=== PATIENT | female | born 1955 | race Caucasian/White ===

== ENCOUNTER 2024-04-20 11:53 | Emergency (ER) | payer OTHER ==
[2024-04-20 12:40] LABS: #Basophils Less than 0.03 10x3/uL (0.0-0.2); %Basophils 0.2 % (0.0-1.0); %Eosinophils 1.1 % (0.0-10.0); %Lymphocytes 15.5 % (21.0-51.0); %Monocytes 6.3 % (0.0-10.0); %Neutrophils 76.6 % (42.0-75.0); Hematocrit 42.4 % (36.0-47.0); Hemoglobin 14.6 g/dL (12.0-16.0); Mean Corpuscular HGB CONC 34.4 g/dL (32.0-36.0); Mean Corpuscular Hemoglobin 31.9 pg (27.0-31.0); Mean Corpuscular Volume 92.8 fL (78.0-98.0); Mean Platelet Volume 10.4 fL (7.4-10.4); Platelet Count 216 10x3/uL (130-400); RBC Distribution Width 15.4 % (11.5-14.5); Red Blood Cell (RBC) Count 4.57 mill/uL (4.20-5.40)
[2024-04-20 13:00] LABS: ALT (SGPT) 32 U/L (8-55); AST (SGOT) 56 U/L (5-34); Albumin 3.1 g/dL (3.4-4.8); Alkaline Phosphatase 148 U/L (40-110); Anion Gap 22 mmol/L (10-20); BUN (Urea Nitrogen) 19 mg/dL (9.8-20.1); Bilirubin, Total 2.3 mg/dL (0.2-1.2); Calc. Creatinine Clearance 0 mL/min (70-130); Calcium 9.2 mg/dL (7.8-10.44); Carbon Dioxide 32 mmol/L (23-31); Chloride 86 mmol/L (98-107); Estimated GFR 27; Globulin 4.6 g/dL (2.4-3.5); Glucose 91 mg/dL (80-115); Protein, Total 7.7 g/dL (5.8-8.1); Sodium 136 mmol/L (136-145)
[2024-04-20 13:12] LABS: Troponin I Less than 0.010 ng/mL (< 0.028)
== END 2024-04-20 17:48 | disposition home or self-care (01) ==
LOC: ERS 11:53
DX: E86.0 Dehydration (principal); R94.5 Abnormal results of liver function studies; N17.9 Acute kidney failure, unspecified; R55 Syncope and collapse; I10 Essential (primary) hypertension; I48.91 Unspecified atrial fibrillation; Z87.891 Personal history of nicotine dependence; Z79.01 Long term (current) use of anticoagulants; Z79.82 Long term (current) use of aspirin
CPT/HCPCS: 80053; 83880; 84484; 85025; 93005; 96360; 96361

== ENCOUNTER 2024-04-24 03:16 | Inpatient (IN) | payer OTHER, MEDICAID ==
[2024-04-24] MEDS ORDERED: Ondansetron PF 4 MG/2 ML Vial ONE (04:29)
[2024-04-24] MEDS ORDERED: Morphine 4 MG/ML VIAL ONE (04:29)
[2024-04-24 04:36] LABS: #Basophils 0.03 10x3/uL (0.0-0.2); %Basophils 0.4 % (0.0-1.0); %Eosinophils 1.1 % (0.0-10.0); %Lymphocytes 23.4 % (21.0-51.0); %Monocytes 9.5 % (0.0-10.0); %Neutrophils 65.4 % (42.0-75.0); Hemoglobin 15.1 g/dL (12.0-16.0); Mean Corpuscular HGB CONC 35.1 g/dL (32.0-36.0); Mean Corpuscular Hemoglobin 31.9 pg (27.0-31.0); Mean Corpuscular Volume 90.7 fL (78.0-98.0); Mean Platelet Volume 10.6 fL (7.4-10.4); Platelet Count 199 10x3/uL (130-400); RBC Distribution Width 15.5 % (11.5-14.5); Red Blood Cell (RBC) Count 4.74 mill/uL (4.20-5.40)
[2024-04-24 05:03] LABS: Troponin I Less than 0.010 ng/mL (< 0.028)
[2024-04-24 05:04] LABS: ALT (SGPT) 42 U/L (8-55); AST (SGOT) 69 U/L (5-34); Albumin 3.5 g/dL (3.4-4.8); Alkaline Phosphatase 142 U/L (40-110); Anion Gap 20 mmol/L (10-20); BUN (Urea Nitrogen) 31 mg/dL (9.8-20.1); Bilirubin, Total 3.1 mg/dL (0.2-1.2); Calc. Creatinine Clearance 0 mL/min (70-130); Calcium 9.2 mg/dL (7.8-10.44); Carbon Dioxide 37 mmol/L (23-31); Chloride 79 mmol/L (98-107); Estimated GFR 10; Globulin 4.6 g/dL (2.4-3.5); Glucose 109 mg/dL (80-115); Lipase 28 U/L (8-78); Magnesium 1.2 mg/dL (1.6-2.6); Potassium 2.8 mmol/L (3.5-5.1); Protein, Total 8.1 g/dL (5.8-8.1); Sodium 133 mmol/L (136-145)
[2024-04-24] MEDS ORDERED: Potassium Chloride 20 MEQ TAB ONE ×2 (05:11→11:14)
[2024-04-24] MEDS ORDERED: Magnesium 2 GM/50 ML BAG (IN WATER) ONE ×2 (05:11→15:05)
[2024-04-24 07:37] LABS: Lactic Acid 1.72 mmol/L (0.5-2.2)
[2024-04-24 09:04] LABS: Phosphorus 3.7 mg/dL (2.3-4.7)
[2024-04-24] MEDS: Potassium Chloride 20 MEQ TAB PO SCH ×2 (11:15→21:43)
[2024-04-24] MEDS: Sodium Chloride 0.9% 1,000 ML IV SCH ×2 (11:22→21:44)
[2024-04-24] MEDS ORDERED: traMADol HCl 50 MG TAB ONE (13:12)
[2024-04-24] MEDS: traMADol HCl 50 MG TAB PO PRN (13:20)
[2024-04-24] MEDS: Magnesium Sulfate In Water 4 GM in Premix 1 BAG IVPB SCH (15:22)
[2024-04-24 16:42] LABS: Anion Gap 19 mmol/L (10-20); BUN (Urea Nitrogen) 32 mg/dL (9.8-20.1); BUN/Creatinine Ratio 7.41; Calc. Creatinine Clearance 0 mL/min (70-130); Calcium 8.2 mg/dL (7.8-10.44); Carbon Dioxide 34 mmol/L (23-31); Chloride 81 mmol/L (98-107); Estimated GFR 11; Glucose 118 mg/dL (80-115); Phosphorus 3.6 mg/dL (2.3-4.7); Potassium 3.2 mmol/L (3.5-5.1); Sodium 131 mmol/L (136-145)
[2024-04-24] MEDS: Loperamide HCl 2 MG CAP PO SCH ×2 (21:43→21:44)
[2024-04-24] MEDS: Apixaban 5 MG TAB PO SCH (21:44)
[2024-04-25 01:55] LABS: Bilirubin Negative (Negative); Blood, Urine Negative (Negative); Clarity Turbid (Clear); Glucose, Urine (Dipstick) Normal (Negative); Ketone, Urine Negative (Negative); Leukocyte 500 Leu/uL (Negative); Nitrite Negative (Negative); Protein, Urine (Dipstick) 20 mg/dL (Neg-Trace); Specific Gravity, Urine 1.022 (1.002-1.036); Urobilinogen Normal mg/dL (Less than 2); WBC/HPF 21-50 HPF (0-3); Yeast-Budding Rare HPF (None Seen)
[2024-04-25 02:05] LABS: Bacteria/HPF 1+ HPF (None Seen); RBC/HPF 0-3 HPF (0-3)
[2024-04-25 02:18] LABS: Creatinine, Urine 325.67 mg/dL (47-110); Protein, Urine Random Quant 32 mg/dL (1-14); Sodium, Urine Less than 20 mmol/L (Not Available)
[2024-04-25 04:28] LABS: #Basophils 0.03 10x3/uL (0.0-0.2); %Basophils 0.4 % (0.0-1.0); %Eosinophils 2.7 % (0.0-10.0); %Lymphocytes 21.3 % (21.0-51.0); %Monocytes 8.7 % (0.0-10.0); %Neutrophils 66.6 % (42.0-75.0); Hematocrit 38.2 % (36.0-47.0); Mean Corpuscular Hemoglobin 32.3 pg (27.0-31.0); Mean Platelet Volume 10.7 fL (7.4-10.4); Platelet Count 148 10x3/uL (130-400); RBC Distribution Width 15.1 % (11.5-14.5); Red Blood Cell (RBC) Count 4.02 mill/uL (4.20-5.40)
[2024-04-25 04:56] LABS: Anion Gap 16 mmol/L (10-20); BUN (Urea Nitrogen) 32 mg/dL (9.8-20.1); Calc. Creatinine Clearance 19 mL/min (70-130); Calcium 8.8 mg/dL (7.8-10.44); Carbon Dioxide 32 mmol/L (23-31); Chloride 83 mmol/L (98-107); Estimated GFR 13; Glucose 97 mg/dL (80-115); Potassium 3.2 mmol/L (3.5-5.1); Sodium 128 mmol/L (136-145)
[2024-04-25] MEDS: HYDROcodone/Acetaminophen 5/325 mg Tablet PO SCH (06:28)
[2024-04-25] MEDS: Lidocaine 4% Patch TD SCH (06:29)
[2024-04-25 07:15] LABS: Magnesium 3.2 mg/dL (1.6-2.6)
[2024-04-25] MEDS: Potassium Chloride 20 MEQ TAB PO SCH ×2 (08:45→11:35)
[2024-04-25] MEDS: Amiodarone 200 MG TAB PO SCH ×2 (10:18→21:06)
[2024-04-25] MEDS: Transdermal Patch Removal TOP SCH (12:58)
[2024-04-25] MEDS: Pantoprazole DR 40 MG TAB PO SCH (15:23)
[2024-04-25] MEDS: Morphine 2 MG/ML VIAL SLOW IVP PRN (15:26)
[2024-04-25 17:46] VITALS: BMI 28.8
[2024-04-25] MEDS: Apixaban 5 MG TAB PO SCH (21:06)
[2024-04-26 05:15] LABS: #Basophils Less than 0.03 10x3/uL (0.0-0.2); %Basophils 0.4 % (0.0-1.0); %Eosinophils 3.1 % (0.0-10.0); %Lymphocytes 23.6 % (21.0-51.0); %Monocytes 9.4 % (0.0-10.0); %Neutrophils 63.3 % (42.0-75.0); Hematocrit 34.2 % (36.0-47.0); Hemoglobin 11.2 g/dL (12.0-16.0); Mean Corpuscular HGB CONC 32.7 g/dL (32.0-36.0); Mean Corpuscular Hemoglobin 32.5 pg (27.0-31.0); Mean Corpuscular Volume 99.1 fL (78.0-98.0); Mean Platelet Volume 10.8 fL (7.4-10.4); Platelet Count 128 10x3/uL (130-400); RBC Distribution Width 15.2 % (11.5-14.5); Red Blood Cell (RBC) Count 3.45 mill/uL (4.20-5.40)
[2024-04-26 05:35] LABS: Chloride 97 mmol/L (98-107); Potassium 3.6 mmol/L (3.5-5.1); Sodium 137 mmol/L (136-145)
[2024-04-26 05:39] LABS: Anion Gap 10 mmol/L (10-20); BUN (Urea Nitrogen) 25 mg/dL (9.8-20.1); Calc. Creatinine Clearance 32 mL/min (70-130); Calcium 8.4 mg/dL (7.8-10.44); Carbon Dioxide 33 mmol/L (23-31); Estimated GFR 25; Glucose 83 mg/dL (80-115)
[2024-04-26] MEDS: Pantoprazole DR 40 MG TAB PO SCH (08:09)
[2024-04-26] MEDS: Aspirin 81 mg Enteric Coated Tablet PO SCH (08:10)
[2024-04-26] MEDS: Loperamide HCl 2 MG CAP PO SCH (16:11)
[2024-04-26] MEDS: Sodium Chloride 0.9% 1,000 ML IV SCH (16:12)
[2024-04-27 05:26] LABS: #Basophils Less than 0.03 10x3/uL (0.0-0.2); %Basophils 0.5 % (0.0-1.0); %Eosinophils 3.5 % (0.0-10.0); %Lymphocytes 22.2 % (21.0-51.0); %Monocytes 7.3 % (0.0-10.0); %Neutrophils 66.3 % (42.0-75.0); Hematocrit 34.7 % (36.0-47.0); Hemoglobin 10.9 g/dL (12.0-16.0); Mean Corpuscular HGB CONC 31.4 g/dL (32.0-36.0); Mean Corpuscular Hemoglobin 32.3 pg (27.0-31.0); Mean Platelet Volume 10.6 fL (7.4-10.4); Platelet Count 109 10x3/uL (130-400); RBC Distribution Width 15.4 % (11.5-14.5); Red Blood Cell (RBC) Count 3.37 mill/uL (4.20-5.40)
[2024-04-27 05:40] LABS: Anion Gap 10 mmol/L (10-20); BUN (Urea Nitrogen) 15 mg/dL (9.8-20.1); Calc. Creatinine Clearance 74 mL/min (70-130); Calcium 8.1 mg/dL (7.8-10.44); Carbon Dioxide 24 mmol/L (23-31); Chloride 112 mmol/L (98-107); Estimated GFR 67; Glucose 75 mg/dL (80-115); Potassium 4.1 mmol/L (3.5-5.1); Sodium 142 mmol/L (136-145)
[2024-04-27] MEDS: Cholestyramine/Aspartame 4 gm Packet PO SCH ×2 (08:35→18:26)
[2024-04-27] MEDS: Metamucil PACK PO SCH (08:35)
[2024-04-27] MEDS: Loperamide HCl 2 MG CAP PO SCH (08:36)
[2024-04-28 05:33] LABS: Anion Gap 9 mmol/L (10-20); BUN (Urea Nitrogen) 14 mg/dL (9.8-20.1); Calc. Creatinine Clearance 84 mL/min (70-130); Carbon Dioxide 22 mmol/L (23-31); Chloride 115 mmol/L (98-107); Estimated GFR 79; Glucose 84 mg/dL (80-115); Potassium 4.6 mmol/L (3.5-5.1); Sodium 141 mmol/L (136-145)
[2024-04-28] MEDS: Diphenoxylate HCl/Atropine Tablet PO SCH (14:20)
[2024-04-29 08:13] LABS: #Basophils 0.03 10x3/uL (0.0-0.2); %Basophils 0.5 % (0.0-1.0); %Eosinophils 4.4 % (0.0-10.0); %Monocytes 6.5 % (0.0-10.0); %Neutrophils 67.4 % (42.0-75.0); Hematocrit 34.8 % (36.0-47.0); Hemoglobin 10.9 g/dL (12.0-16.0); Mean Corpuscular HGB CONC 31.3 g/dL (32.0-36.0); Mean Corpuscular Hemoglobin 32.3 pg (27.0-31.0); Mean Corpuscular Volume 103.3 fL (78.0-98.0); Mean Platelet Volume 10.3 fL (7.4-10.4); Platelet Count 118 10x3/uL (130-400); RBC Distribution Width 14.8 % (11.5-14.5); Red Blood Cell (RBC) Count 3.37 mill/uL (4.20-5.40)
[2024-04-29 08:19] LABS: Anion Gap 11 mmol/L (10-20); BUN (Urea Nitrogen) 17 mg/dL (9.8-20.1); Calc. Creatinine Clearance 62 mL/min (70-130); Calcium 8.1 mg/dL (7.8-10.44); Carbon Dioxide 23 mmol/L (23-31); Chloride 109 mmol/L (98-107); Estimated GFR 55; Glucose 121 mg/dL (80-115); Sodium 139 mmol/L (136-145)
[2024-04-29] MEDS: Ketorolac Tromethamine 30 MG (1 mL) VIAL IVP SCH (10:44)
[2024-04-29 11:12] LABS: #Basophils 0.03 10x3/uL (0.0-0.2); %Basophils 0.5 % (0.0-1.0); %Eosinophils 4.2 % (0.0-10.0); %Lymphocytes 22.4 % (21.0-51.0); %Monocytes 7.7 % (0.0-10.0); %Neutrophils 64.9 % (42.0-75.0); Hematocrit 36.1 % (36.0-47.0); Hemoglobin 11.7 g/dL (12.0-16.0); Mean Corpuscular HGB CONC 32.4 g/dL (32.0-36.0); Mean Corpuscular Hemoglobin 32.4 pg (27.0-31.0); Platelet Count 90 10x3/uL (130-400); RBC Distribution Width 14.7 % (11.5-14.5); Red Blood Cell (RBC) Count 3.61 mill/uL (4.20-5.40)
[2024-04-29 11:16] LABS: Anion Gap 12 mmol/L (10-20); BUN (Urea Nitrogen) 17 mg/dL (9.8-20.1); Calc. Creatinine Clearance 64 mL/min (70-130); Calcium 8.1 mg/dL (7.8-10.44); Carbon Dioxide 24 mmol/L (23-31); Chloride 107 mmol/L (98-107); Estimated GFR 56; Glucose 115 mg/dL (80-115); Potassium 4.7 mmol/L (3.5-5.1); Sodium 138 mmol/L (136-145)
[2024-04-29] MEDS: oxyCODONE/Acetaminophen 5 mg/325 mg Tablet PO PRN (12:05)
[2024-04-29] MEDS: Ondansetron PF 4 MG/2 ML Vial IVP PRN (12:07)
[2024-04-29] MEDS: Metamucil PACK PO SCH ×2 (15:12→20:38)
[2024-04-30] MEDS: fentaNYL 50 mcg/mL 1 mL Vial SLOW IVP SCH ×2 (00:24→01:19)
[2024-04-30 06:13] LABS: Campy jejuni + coli by PCR Negative (Negative); STEC Shiga Toxin 1+2 Negative (Negative); Salmonella spp. by PCR Negative (Negative); Shigella spp + EIEC by PCR Negative (Negative)
[2024-04-30 07:24] LABS: Albumin 2.6 g/dL (3.4-4.8); Anion Gap 13 mmol/L (10-20); BUN (Urea Nitrogen) 23 mg/dL (9.8-20.1); BUN/Creatinine Ratio 17.69; Calc. Creatinine Clearance 52 mL/min (70-130); Calcium 8.5 mg/dL (7.8-10.44); Carbon Dioxide 25 mmol/L (23-31); Chloride 105 mmol/L (98-107); Estimated GFR 45; Glucose 82 mg/dL (80-115); Magnesium 0.6 mg/dL (1.6-2.6); Phosphorus 2.1 mg/dL (2.3-4.7); Potassium 5.6 mmol/L (3.5-5.1); Sodium 137 mmol/L (136-145)
[2024-04-30] MEDS: Sodium Chloride 0.9% 500 ML IV SCH (10:20)
[2024-04-30] MEDS: Magnesium Sulfate In Water 4 GM in Premix 1 BAG IVPB SCH (10:54)
[2024-04-30] MEDS: Pancrelipase DR 12,000 1 CAP PO SCH (11:56)
[2024-04-30] MEDS: LOKELMA 10 GM PACKET PO SCH (13:20)
[2024-04-30] MEDS: Sodium Chloride 0.9% 1,000 ML IV SCH (13:41)
[2024-04-30 14:26] LABS: Anion Gap 13 mmol/L (10-20); BUN (Urea Nitrogen) 21 mg/dL (9.8-20.1); Calc. Creatinine Clearance 50 mL/min (70-130); Calcium 8.5 mg/dL (7.8-10.44); Carbon Dioxide 28 mmol/L (23-31); Chloride 103 mmol/L (98-107); Estimated GFR 42; Glucose 105 mg/dL (80-115); Potassium 5.1 mmol/L (3.5-5.1); Sodium 139 mmol/L (136-145)
[2024-04-30] MEDS: Acetaminophen 325 MG TAB PO PRN (23:27)
[2024-05-01 04:37] LABS: Adenovirus F 40-41 Not Detected (Not Detected); Astrovirus Not Detected (Not Detected); C. difficile toxin A+B Not Detected (Not Detected); Campylobacter by PCR Not Detected (Not Detected); Cryptosporidium Not Detected (Not Detected); Cyclospora cayetanensis Not Detected (Not Detected); Entamoeba histolytica Not Detected (Not Detected); Enteroaggregative E. coli Not Detected (Not Detected); Enteropathogenic E. coli Not Detected (Not Detected); Enterotoxigenic E. coli Not Detected (Not Detected); Giardia lamblia Not Detected (Not Detected); Norovirus GI-GII Not Detected (Not Detected); Plesiomonas shigelloides Not Detected (Not Detected); Rotavirus A Not Detected (Not Detected); Salmonella Not Detected (Not Detected); Sapovirus Not Detected (Not Detected); Shiga-toxin-producing E coli Not Detected (Not Detected); Shigella/Enteroinvasive E coli Not Detected (Not Detected); Vibrio Not Detected (Not Detected); Vibrio cholerae Not Detected (Not Detected); Yersinia enterocolitica Not Detected (Not Detected)
[2024-05-01 05:59] LABS: #Basophils Less than 0.03 10x3/uL (0.0-0.2); %Basophils 0.4 % (0.0-1.0); %Eosinophils 5.3 % (0.0-10.0); %Lymphocytes 21.1 % (21.0-51.0); %Monocytes 8.2 % (0.0-10.0); %Neutrophils 64.8 % (42.0-75.0); Hematocrit 37.1 % (36.0-47.0); Hemoglobin 11.9 g/dL (12.0-16.0); Mean Corpuscular HGB CONC 32.1 g/dL (32.0-36.0); Mean Corpuscular Hemoglobin 32.1 pg (27.0-31.0); Mean Platelet Volume 10.2 fL (7.4-10.4); Platelet Count 115 10x3/uL (130-400); RBC Distribution Width 14.6 % (11.5-14.5); Red Blood Cell (RBC) Count 3.71 mill/uL (4.20-5.40)
[2024-05-01 06:09] LABS: Anion Gap 12 mmol/L (10-20); BUN (Urea Nitrogen) 17 mg/dL (9.8-20.1); Calc. Creatinine Clearance 64 mL/min (70-130); Calcium 8.5 mg/dL (7.8-10.44); Carbon Dioxide 26 mmol/L (23-31); Chloride 106 mmol/L (98-107); Estimated GFR 57; Glucose 82 mg/dL (80-115); Magnesium 1.6 mg/dL (1.6-2.6); Potassium 4.7 mmol/L (3.5-5.1); Sodium 139 mmol/L (136-145)
[2024-05-01] MEDS: Magnesium Sulfate In Water 4 GM in Premix 1 BAG IVPB SCH (08:54)
[2024-05-01] MEDS: fentaNYL 50 mcg/mL 1 mL Vial SLOW IVP SCH (10:50)
[2024-05-01 12:25] LABS: Phosphorus 2.8 mg/dL (2.3-4.7)
[2024-05-01] MEDS: Calcium Carbonate 500 MG ChewTAB PO PRN (14:43)
[2024-05-02 05:17] LABS: Hematocrit 36.6 % (36.0-47.0); Hemoglobin 12.2 g/dL (12.0-16.0); Mean Corpuscular HGB CONC 33.1 g/dL (32.0-36.0); Mean Corpuscular Hemoglobin 32.3 pg (27.0-31.0); Mean Corpuscular Volume 97.6 fL (78.0-98.0); Mean Platelet Volume 10.5 fL (7.4-10.4); Platelet Count 110 10x3/uL (130-400); RBC Distribution Width 14.6 % (11.5-14.5); Red Blood Cell (RBC) Count 3.78 mill/uL (4.20-5.40)
[2024-05-02 05:22] LABS: Anion Gap 12 mmol/L (10-20); BUN (Urea Nitrogen) 17 mg/dL (9.8-20.1); Calc. Creatinine Clearance 60 mL/min (70-130); Carbon Dioxide 30 mmol/L (23-31); Chloride 99 mmol/L (98-107); Estimated GFR 52; Glucose 155 mg/dL (80-115); Potassium 4.2 mmol/L (3.5-5.1); Sodium 137 mmol/L (136-145)
[2024-05-02] MEDS: fentaNYL 50 mcg/mL 1 mL Vial SLOW IVP SCH (16:41)
[2024-05-02] MEDS: Opium Tincture 10% (1ml Charge) PO SCH (17:57)
[2024-05-02] MEDS: NS 0.9% w/ 20 MEQ KCL 1,000 ML IV SCH (20:39)
[2024-05-03 06:15] LABS: Norovirus GI Negative (Negative); Norovirus GII Negative (Negative)
[2024-05-03 07:43] LABS: Albumin 2.7 g/dL (3.4-4.8); Anion Gap 12 mmol/L (10-20); BUN (Urea Nitrogen) 24 mg/dL (9.8-20.1); BUN/Creatinine Ratio 11.88; Calc. Creatinine Clearance 34 mL/min (70-130); Calcium 9.5 mg/dL (7.8-10.44); Carbon Dioxide 36 mmol/L (23-31); Chloride 91 mmol/L (98-107); Estimated GFR 26; Glucose 89 mg/dL (80-115); Magnesium 1.7 mg/dL (1.6-2.6); Phosphorus 3.8 mg/dL (2.3-4.7); Potassium 3.9 mmol/L (3.5-5.1); Sodium 135 mmol/L (136-145)
[2024-05-03] MEDS: Sodium Chloride 0.9% 1,000 ML IV SCH ×3 (09:12→15:36)
[2024-05-03] MEDS: NS 0.9% w/ 20 MEQ KCL 1,000 ML IV SCH (09:56)
[2024-05-03] MEDS ORDERED: Morphine 2 MG/ML VIAL SLOW IVP PRN (10:53)
[2024-05-03] MEDS: Morphine 4 MG/ML VIAL SLOW IVP PRN (11:57)
[2024-05-03] MEDS: Magnesium 2 GM/50 ML(in water) 2 GM in Premix 1 BAG IVPB SCH (12:02)
[2024-05-03 14:49] LABS: Albumin 2.7 g/dL (3.4-4.8); Anion Gap 13 mmol/L (10-20); BUN (Urea Nitrogen) 22 mg/dL (9.8-20.1); Calc. Creatinine Clearance 44 mL/min (70-130); Calcium 9.4 mg/dL (7.8-10.44); Carbon Dioxide 30 mmol/L (23-31); Chloride 98 mmol/L (98-107); Estimated GFR 36; Glucose 95 mg/dL (80-115); Phosphorus 3.7 mg/dL (2.3-4.7); Potassium 4.4 mmol/L (3.5-5.1); Sodium 137 mmol/L (136-145)
[2024-05-04 05:33] LABS: Albumin 2.2 g/dL (3.4-4.8); Anion Gap 13 mmol/L (10-20); BUN (Urea Nitrogen) 19 mg/dL (9.8-20.1); BUN/Creatinine Ratio 17.12; Calc. Creatinine Clearance 61 mL/min (70-130); Calcium 8.2 mg/dL (7.8-10.44); Carbon Dioxide 26 mmol/L (23-31); Chloride 103 mmol/L (98-107); Estimated GFR 54; Glucose 101 mg/dL (80-115); Magnesium 1.6 mg/dL (1.6-2.6); Phosphorus 3.1 mg/dL (2.3-4.7); Potassium 4.5 mmol/L (3.5-5.1); Sodium 137 mmol/L (136-145)
[2024-05-04 05:41] LABS: ALT (SGPT) 27 U/L (8-55); AST (SGOT) 37 U/L (5-34); Albumin 2.2 g/dL (3.4-4.8); Alkaline Phosphatase 110 U/L (40-110); Bilirubin, Direct 0.4 mg/dL (0.1-0.3); Bilirubin, Total 0.9 mg/dL (0.2-1.2); Protein, Total 5.1 g/dL (5.8-8.1)
[2024-05-04] MEDS: Magnesium Sulfate In Water 4 GM in Premix 1 BAG IVPB SCH (08:58)
[2024-05-05 04:44] LABS: Hematocrit 30.3 % (36.0-47.0); Hemoglobin 9.7 g/dL (12.0-16.0); Mean Corpuscular Hemoglobin 31.6 pg (27.0-31.0); Mean Corpuscular Volume 98.7 fL (78.0-98.0); Mean Platelet Volume 10.1 fL (7.4-10.4); Platelet Count 113 10x3/uL (130-400); Red Blood Cell (RBC) Count 3.07 mill/uL (4.20-5.40)
[2024-05-05 04:58] LABS: Anion Gap 7 mmol/L (10-20); BUN (Urea Nitrogen) 12 mg/dL (9.8-20.1); Calc. Creatinine Clearance 83 mL/min (70-130); Calcium 7.9 mg/dL (7.8-10.44); Carbon Dioxide 29 mmol/L (23-31); Chloride 108 mmol/L (98-107); Estimated GFR 77; Glucose 83 mg/dL (80-115); Potassium 3.6 mmol/L (3.5-5.1); Sodium 140 mmol/L (136-145)
[2024-05-05] MEDS: Lactated Ringer's 1,000 ML IV SCH (10:27)
[2024-05-06 06:37] LABS: Albumin 2.1 g/dL (3.4-4.8); Anion Gap 11 mmol/L (10-20); BUN (Urea Nitrogen) 7 mg/dL (9.8-20.1); BUN/Creatinine Ratio 9.59; Calc. Creatinine Clearance 93 mL/min (70-130); Calcium 8.2 mg/dL (7.8-10.44); Carbon Dioxide 23 mmol/L (23-31); Chloride 108 mmol/L (98-107); Estimated GFR 89; Glucose 78 mg/dL (80-115); Magnesium 1.3 mg/dL (1.6-2.6); Phosphorus 2.9 mg/dL (2.3-4.7); Potassium 4.1 mmol/L (3.5-5.1); Sodium 138 mmol/L (136-145)
[2024-05-06] MEDS ORDERED: Barium Sulfate 96% 176 GM BOT (xray ONLY) ONE (06:57)
[2024-05-06] MEDS ORDERED: MD-Gastroview 120 ML BOT ONE ×2 (06:57→07:12)
[2024-05-06] MEDS ORDERED: E-Z-HD 98% W/W 340GM BOT (x-ray ONLY) ONE (06:57)
[2024-05-06] MEDS: Lactated Ringer's 1,000 ML IV SCH (12:28)
[2024-05-06] MEDS: Magnesium Sulfate In Water 4 GM in Premix 1 BAG IVPB SCH (12:28)
[2024-05-06] MEDS: Magnesium Sulfate 4 GM in Sodium Chloride 0.9% 250 ML 250 ML IVPB SCH (12:53)
[2024-05-06] MEDS: Multivitamins, Adult 10 ML, Folic Acid 1 MG, Thiamine HCl 100 MG, Admixture Fee 1 EACH ... IV SCH (14:17)
[2024-05-07 08:48] LABS: Anion Gap 10 mmol/L (10-20); BUN (Urea Nitrogen) 8 mg/dL (9.8-20.1); Calc. Creatinine Clearance 85 mL/min (70-130); Carbon Dioxide 27 mmol/L (23-31); Chloride 107 mmol/L (98-107); Estimated GFR 80; Glucose 82 mg/dL (80-115); Magnesium 1.7 mg/dL (1.6-2.6); Phosphorus 2.8 mg/dL (2.3-4.7); Potassium 3.6 mmol/L (3.5-5.1); Sodium 140 mmol/L (136-145)
[2024-05-07] MEDS: Magnesium Sulfate In Water 4 GM in Premix 1 BAG IVPB SCH (09:49)
[2024-05-07] MEDS: Potassium Phosphate 15 MMOL in Sodium Chloride 0.9% 250 ML 250 ML IVPB SCH (12:15)
[2024-05-08 05:28] LABS: Albumin 1.7 g/dL (3.4-4.8); Anion Gap 8 mmol/L (10-20); BUN (Urea Nitrogen) 9 mg/dL (9.8-20.1); BUN/Creatinine Ratio 11.54; Calc. Creatinine Clearance 87 mL/min (70-130); Calcium 7.6 mg/dL (7.8-10.44); Carbon Dioxide 27 mmol/L (23-31); Chloride 108 mmol/L (98-107); Estimated GFR 82; Glucose 103 mg/dL (80-115); Phosphorus 2.9 mg/dL (2.3-4.7); Potassium 3.8 mmol/L (3.5-5.1); Sodium 139 mmol/L (136-145)
[2024-05-08 05:53] LABS: #Basophils Less than 0.03 10x3/uL (0.0-0.2); %Basophils 0.2 % (0.0-1.0); %Eosinophils 2.7 % (0.0-10.0); %Monocytes 7.2 % (0.0-10.0); %Neutrophils 70.7 % (42.0-75.0); Hematocrit 28.2 % (36.0-47.0); Hemoglobin 9.3 g/dL (12.0-16.0); Mean Corpuscular Hemoglobin 32.6 pg (27.0-31.0); Mean Corpuscular Volume 98.9 fL (78.0-98.0); Mean Platelet Volume 10.5 fL (7.4-10.4); Platelet Count 118 10x3/uL (130-400); RBC Distribution Width 15.7 % (11.5-14.5); Red Blood Cell (RBC) Count 2.85 mill/uL (4.20-5.40)
[2024-05-08] MEDS ORDERED: Calcium Carbonate 600 MG + Vit D TAB PO SCH (08:00)
[2024-05-08] MEDS: Ergocalciferol 1.25 MG(50,000 UNITS) CAP PO SCH (09:26)
[2024-05-09 10:54] LABS: Albumin 1.8 g/dL (3.4-4.8); Anion Gap 9 mmol/L (10-20); BUN (Urea Nitrogen) 9 mg/dL (9.8-20.1); BUN/Creatinine Ratio 11.11; Calc. Creatinine Clearance 84 mL/min (70-130); Carbon Dioxide 30 mmol/L (23-31); Chloride 103 mmol/L (98-107); Estimated GFR 79; Glucose 109 mg/dL (80-115); Magnesium 1.4 mg/dL (1.6-2.6); Phosphorus 2.9 mg/dL (2.3-4.7); Potassium 3.8 mmol/L (3.5-5.1); Sodium 138 mmol/L (136-145)
[2024-05-09] MEDS: Magnesium Sulfate In Water 4 GM in Premix 1 BAG IVPB SCH (12:10)
[2024-05-10] MEDS: oxyCODONE/Acetaminophen 5 mg/325 mg Tablet PO PRN (02:38)
[2024-05-10] MEDS: Magnesium Oxide 400 MG TAB PO SCH (08:13)
[2024-05-10 09:13] LABS: Albumin 2.1 g/dL (3.4-4.8); Anion Gap 11 mmol/L (10-20); BUN (Urea Nitrogen) 8 mg/dL (9.8-20.1); BUN/Creatinine Ratio 9.88; Calc. Creatinine Clearance 84 mL/min (70-130); Calcium 8.2 mg/dL (7.8-10.44); Carbon Dioxide 27 mmol/L (23-31); Chloride 104 mmol/L (98-107); Estimated GFR 79; Glucose 91 mg/dL (80-115); Magnesium 1.9 mg/dL (1.6-2.6); Phosphorus 3.4 mg/dL (2.3-4.7); Potassium 4.6 mmol/L (3.5-5.1); Sodium 137 mmol/L (136-145)
[2024-05-10 12:43] VITALS: BP 110/62; TEMP 98.1
== END 2024-05-10 12:40 | disposition home or self-care (01) | DRG 683 ==
LOC: ERS 03:16 → ERHOLD 07:39 → 2NO 20:11 → MSONC 04-26 12:04
PROVIDERS: ADMIT Internal Medicine; ATTEND Internal Medicine
DX: N17.9 Acute kidney failure, unspecified (principal); E87.1 Hypo-osmolality and hyponatremia; E87.3 Alkalosis; K90.829 Short bowel syndrome, unspecified; E87.6 Hypokalemia; I48.0 Paroxysmal atrial fibrillation; E87.8 Other disorders of electrolyte and fluid balance, not elsewhere classified; D69.6 Thrombocytopenia, unspecified; E87.5 Hyperkalemia; E83.42 Hypomagnesemia; E78.5 Hyperlipidemia, unspecified; E86.0 Dehydration; E80.6 Other disorders of bilirubin metabolism; E86.9 Volume depletion, unspecified; E83.39 Other disorders of phosphorus metabolism; Z86.718 Personal history of other venous thrombosis and embolism; Z90.49 Acquired absence of other specified parts of digestive tract; Z79.01 Long term (current) use of anticoagulants; Z87.891 Personal history of nicotine dependence; Z88.5 Allergy status to narcotic agent; Z91.018 Allergy to other foods; Z98.51 Tubal ligation status; Z79.82 Long term (current) use of aspirin; Z79.899 Other long term (current) drug therapy; Z93.2 Ileostomy status
CPT/HCPCS: 36415; 36416; 74176; 74240; 80048; 80053; 80069; 81001; 82306; 82550; 82570; 83605; 83630; 83690; 83735; 84100; 84134; 84156; 84300; 84484; 85025; 85027; 87505; 87507; 87798; 93005; 93010; 94760; 96365; 96375; 97139; J1885; J2272; J2405; J3010; J3411; J3475; J3480; J7030; J7042; J7050; J7120; Q9963

== ENCOUNTER 2024-05-18 10:33 | Inpatient (IN) | payer OTHER, MEDICAID ==
[2024-05-18 11:25] LABS: #Basophils 0.03 10x3/uL (0.0-0.2); %Basophils 0.2 % (0.0-1.0); %Eosinophils 0.2 % (0.0-10.0); %Lymphocytes 12.5 % (21.0-51.0); %Monocytes 7.3 % (0.0-10.0); %Neutrophils 79.4 % (42.0-75.0); Hematocrit 44.7 % (36.0-47.0); Hemoglobin 14.9 g/dL (12.0-16.0); Mean Corpuscular HGB CONC 33.3 g/dL (32.0-36.0); Mean Corpuscular Volume 95.9 fL (78.0-98.0); Mean Platelet Volume 9.6 fL (7.4-10.4); Platelet Count 284 10x3/uL (130-400); RBC Distribution Width 15.1 % (11.5-14.5); Red Blood Cell (RBC) Count 4.66 mill/uL (4.20-5.40)
[2024-05-18 11:58] LABS: ALT (SGPT) 44 U/L (8-55); AST (SGOT) 67 U/L (5-34); Albumin 3.2 g/dL (3.4-4.8); Alkaline Phosphatase 145 U/L (40-110); Anion Gap 26 mmol/L (10-20); BUN (Urea Nitrogen) 27 mg/dL (9.8-20.1); CK (CPK) 57 U/L (29-168); Calc. Creatinine Clearance 0 mL/min (70-130); Calcium 8.8 mg/dL (7.8-10.44); Carbon Dioxide 24 mmol/L (23-31); Chloride 83 mmol/L (98-107); Estimated GFR 10; Globulin 4.9 g/dL (2.4-3.5); Glucose 97 mg/dL (80-115); Lipase 24 U/L (8-78); Potassium 4.1 mmol/L (3.5-5.1); Protein, Total 8.1 g/dL (5.8-8.1); Sodium 129 mmol/L (136-145); Troponin I 0.011 ng/mL (< 0.028)
[2024-05-18 11:59] LABS: Magnesium 1.2 mg/dL (1.6-2.6)
[2024-05-18] MEDS ORDERED: Ondansetron PF 4 MG/2 ML Vial ONE (13:00)
[2024-05-18] MEDS ORDERED: Magnesium 2 GM/50 ML BAG (IN WATER) ONE (13:00)
[2024-05-18] MEDS ORDERED: Morphine 4 MG/ML VIAL ONE ×2 (13:00→19:30)
[2024-05-18] MEDS ORDERED: Cefepime 2 GM VIAL ONE (13:01)
[2024-05-18] MEDS ORDERED: Sodium Chloride 0.9% 100 ML ONE (13:01)
[2024-05-18 14:42] LABS: Lactic Acid 2.55 mmol/L (0.5-2.2)
[2024-05-18 16:56] LABS: Bilirubin Negative (Negative); Blood, Urine Negative (Negative); CAUTI Indications for Culture Acute Hematuria; Clarity Turbid (Clear); Glucose, Urine (Dipstick) Normal (Negative); Ketone, Urine Trace mg/dL (Negative); Leukocyte 75 Leu/uL (Negative); Nitrite Negative (Negative); Protein, Urine (Dipstick) 70 mg/dL (Neg-Trace); RBC/HPF 0-3 HPF (0-3); Renal Epithelial 0-3 HPF (None Seen); Specific Gravity, Urine 1.025 (1.002-1.036); Squamous Epithelial 0-3 HPF (0-3); Yeast-Budding 1+ HPF (None Seen)
[2024-05-18 17:14] LABS: Bacteria/HPF 1+ HPF (None Seen)
[2024-05-18 17:15] LABS: Yeast-Hyphae Rare HPF (None Seen)
[2024-05-18 17:16] LABS: Urine Culture Reflex Yes Yes
[2024-05-18] MEDS ORDERED: Electrolyte Replacement Protocol 1 EACH FS SCH (20:15)
[2024-05-18] MEDS ORDERED: Ondansetron ODT 4 MG TAB PO PRN (21:07)
[2024-05-18 22:04] VITALS: BMI 27.9
[2024-05-18 22:31] LABS: Phosphorus 4.9 mg/dL (2.3-4.7)
[2024-05-18] MEDS: Pantoprazole DR 40 MG TAB PO SCH (22:49)
[2024-05-18] MEDS: Magnesium 2 GM/50 ML(in water) 2 GM in Premix 1 BAG IVPB SCH (22:51)
[2024-05-18] MEDS: Sodium Chloride 0.9% 1,000 ML IV SCH (22:55)
[2024-05-18] MEDS: Metamucil PACK PO SCH (22:56)
[2024-05-18] MEDS: Apixaban 5 MG TAB PO SCH (23:01)
[2024-05-18] MEDS: traZODone HCl 50 MG TAB PO PRN (23:01)
[2024-05-18 23:11] LABS: Anion Gap 20 mmol/L (10-20); BUN (Urea Nitrogen) 28 mg/dL (9.8-20.1); Calc. Creatinine Clearance 16 mL/min (70-130); Calcium 7.9 mg/dL (7.8-10.44); Carbon Dioxide 23 mmol/L (23-31); Chloride 89 mmol/L (98-107); Estimated GFR 11; Glucose 115 mg/dL (80-115); Potassium 3.6 mmol/L (3.5-5.1); Sodium 128 mmol/L (136-145)
[2024-05-19] MEDS: Potassium Chloride 20 MEQ TAB PO SCH (00:01)
[2024-05-19] MEDS: Ondansetron PF 4 MG/2 ML Vial IVP PRN (00:01)
[2024-05-19] MEDS: cefTRIAXone\\ROCEPHIN 1 GM in Sodium Chloride 0.9% 100 ML IVPB SCH (01:52)
[2024-05-19] MEDS: Opium Tincture 10% (1ml Charge) PO SCH (02:37)
[2024-05-19 04:35] LABS: #Basophils Less than 0.03 10x3/uL (0.0-0.2); %Basophils 0.2 % (0.0-1.0); %Eosinophils 0.6 % (0.0-10.0); %Lymphocytes 8.5 % (21.0-51.0); %Neutrophils 84.5 % (42.0-75.0); Hematocrit 39.5 % (36.0-47.0); Hemoglobin 12.9 g/dL (12.0-16.0); Mean Corpuscular HGB CONC 32.7 g/dL (32.0-36.0); Mean Corpuscular Hemoglobin 32.1 pg (27.0-31.0); Mean Corpuscular Volume 98.3 fL (78.0-98.0); Mean Platelet Volume 9.9 fL (7.4-10.4); Platelet Count 171 10x3/uL (130-400); RBC Distribution Width 14.8 % (11.5-14.5); Red Blood Cell (RBC) Count 4.02 mill/uL (4.20-5.40)
[2024-05-19 04:50] LABS: Anion Gap 17 mmol/L (10-20); BUN (Urea Nitrogen) 29 mg/dL (9.8-20.1); Calc. Creatinine Clearance 19 mL/min (70-130); Calcium 8.1 mg/dL (7.8-10.44); Carbon Dioxide 23 mmol/L (23-31); Chloride 90 mmol/L (98-107); Estimated GFR 14; Glucose 110 mg/dL (80-115); Magnesium 2.3 mg/dL (1.6-2.6); Potassium 4.1 mmol/L (3.5-5.1); Sodium 126 mmol/L (136-145)
[2024-05-19] MEDS: Aspirin 81 mg Enteric Coated Tablet PO SCH (08:34)
[2024-05-19] MEDS: Amiodarone 200 MG TAB PO SCH (08:34)
[2024-05-19] MEDS: Pancrelipase DR 12,000 1 CAP PO SCH (08:35)
[2024-05-19] MEDS: Pantoprazole DR 40 MG TAB PO SCH (08:35)
[2024-05-19] MEDS: Apixaban 5 MG TAB PO SCH (08:35)
[2024-05-19] MEDS: FLU (Fluad Triv) TS24-25 (65UP)/MF59C/PF 45 MCG/0.5 ML Syringe IM ONE (10:17)
[2024-05-19] MEDS: Morphine 2 MG/ML VIAL SLOW IVP PRN (11:53)
[2024-05-19] MEDS: Sodium Chloride 0.9% 1,000 ML IV SCH (18:38)
[2024-05-20 04:50] LABS: #Basophils Less than 0.03 10x3/uL (0.0-0.2); %Basophils 0.3 % (0.0-1.0); %Eosinophils 2.4 % (0.0-10.0); %Lymphocytes 15.6 % (21.0-51.0); %Monocytes 8.3 % (0.0-10.0); %Neutrophils 73.1 % (42.0-75.0); Hematocrit 35.3 % (36.0-47.0); Hemoglobin 11.3 g/dL (12.0-16.0); Mean Corpuscular Hemoglobin 31.9 pg (27.0-31.0); Mean Corpuscular Volume 99.7 fL (78.0-98.0); Mean Platelet Volume 10.1 fL (7.4-10.4); Platelet Count 143 10x3/uL (130-400); RBC Distribution Width 14.6 % (11.5-14.5); Red Blood Cell (RBC) Count 3.54 mill/uL (4.20-5.40)
[2024-05-20 05:23] LABS: Anion Gap 10 mmol/L (10-20); BUN (Urea Nitrogen) 21 mg/dL (9.8-20.1); Calc. Creatinine Clearance 33 mL/min (70-130); Calcium 8.1 mg/dL (7.8-10.44); Carbon Dioxide 27 mmol/L (23-31); Chloride 98 mmol/L (98-107); Estimated GFR 27; Glucose 87 mg/dL (80-115); Magnesium 1.9 mg/dL (1.6-2.6); Potassium 3.1 mmol/L (3.5-5.1); Sodium 132 mmol/L (136-145)
[2024-05-20 07:28] LABS: Phosphorus 2.4 mg/dL (2.3-4.7)
[2024-05-20] MEDS: Potassium Chloride 20 MEQ TAB PO SCH ×2 (10:10→10:22)
[2024-05-20] MEDS: Loratadine 10 MG TAB PO PRN (10:57)
[2024-05-20] MEDS: Vancomycin (BATCH) 2 GM in Premix 1 BAG IVPB SCH (11:30)
[2024-05-21 05:25] LABS: Anion Gap 9 mmol/L (10-20); BUN (Urea Nitrogen) 12 mg/dL (9.8-20.1); Calc. Creatinine Clearance 57 mL/min (70-130); Calcium 7.7 mg/dL (7.8-10.44); Carbon Dioxide 26 mmol/L (23-31); Chloride 108 mmol/L (98-107); Estimated GFR 52; Glucose 76 mg/dL (80-115); Magnesium 1.4 mg/dL (1.6-2.6); Potassium 3.6 mmol/L (3.5-5.1); Sodium 139 mmol/L (136-145)
[2024-05-21 05:36] LABS: #Basophils Less than 0.03 10x3/uL (0.0-0.2); %Basophils 0.4 % (0.0-1.0); %Eosinophils 2.6 % (0.0-10.0); %Lymphocytes 17.2 % (21.0-51.0); %Monocytes 8.2 % (0.0-10.0); %Neutrophils 71.4 % (42.0-75.0); Hematocrit 33.3 % (36.0-47.0); Hemoglobin 10.4 g/dL (12.0-16.0); Mean Corpuscular HGB CONC 31.2 g/dL (32.0-36.0); Mean Corpuscular Hemoglobin 32.2 pg (27.0-31.0); Mean Corpuscular Volume 103.1 fL (78.0-98.0); Mean Platelet Volume 10.6 fL (7.4-10.4); Platelet Count 125 10x3/uL (130-400); RBC Distribution Width 14.6 % (11.5-14.5); Red Blood Cell (RBC) Count 3.23 mill/uL (4.20-5.40)
[2024-05-21] MEDS: Fluconazole In NaCl,Iso-Osm 100 MG in Admixture Fee 2 EACH IVPB SCH (09:46)
[2024-05-21] MEDS: Magnesium Sulfate In Water 4 GM in Premix 1 BAG IVPB SCH (09:47)
[2024-05-21] MEDS: Acetaminophen 325 MG TAB PO PRN (19:14)
[2024-05-22 08:34] LABS: Albumin 2.4 g/dL (3.4-4.8); Anion Gap 10 mmol/L (10-20); BUN (Urea Nitrogen) 9 mg/dL (9.8-20.1); BUN/Creatinine Ratio 10.23; Calc. Creatinine Clearance 74 mL/min (70-130); Calcium 7.8 mg/dL (7.8-10.44); Carbon Dioxide 20 mmol/L (23-31); Chloride 113 mmol/L (98-107); Estimated GFR 71; Glucose 108 mg/dL (80-115); Magnesium 1.7 mg/dL (1.6-2.6); Potassium 3.9 mmol/L (3.5-5.1); Sodium 139 mmol/L (136-145)
[2024-05-22] MEDS ORDERED: Sodium Phosphate 30 MMOL in Sodium Chloride 0.9% 250 ML 250 ML IVPB SCH (09:00)
[2024-05-22] MEDS ORDERED: Loratadine 10 MG TAB PO PRN (09:00)
[2024-05-22] MEDS: Magnesium Sulfate In Water 4 GM in Premix 1 BAG IVPB SCH (09:21)
[2024-05-22] MEDS: Sodium Phosphate 15 MMOL in Sodium Chloride 0.9% 250 ML 250 ML IVPB SCH (11:02)
[2024-05-22] MEDS: Diphenoxylate HCl/Atropine Tablet PO SCH (23:54)
[2024-05-22] MEDS: Potassium Chloride 20 MEQ TAB PO SCH (23:55)
[2024-05-22] MEDS: Metamucil PACK PO SCH (23:55)
[2024-05-22] MEDS: Apixaban 5 MG TAB PO SCH (23:56)
[2024-05-22] MEDS: Amiodarone 200 MG TAB PO SCH (23:56)
[2024-05-22] MEDS: Loperamide HCl 2 MG CAP PO SCH (23:56)
[2024-05-22] MEDS: Pantoprazole DR 40 MG TAB PO SCH (23:56)
[2024-05-23] MEDS: Loperamide HCl 2 MG CAP PO SCH (00:03)
[2024-05-23] MEDS: Pantoprazole DR 40 MG TAB PO SCH (00:04)
[2024-05-23 05:30] LABS: #Basophils 0.03 10x3/uL (0.0-0.2); %Basophils 0.6 % (0.0-1.0); %Eosinophils 4.4 % (0.0-10.0); %Lymphocytes 22.1 % (21.0-51.0); %Monocytes 8.8 % (0.0-10.0); %Neutrophils 63.7 % (42.0-75.0); Hemoglobin 9.1 g/dL (12.0-16.0); Mean Corpuscular HGB CONC 31.4 g/dL (32.0-36.0); Mean Corpuscular Hemoglobin 32.5 pg (27.0-31.0); Mean Corpuscular Volume 103.6 fL (78.0-98.0); Mean Platelet Volume 10.4 fL (7.4-10.4); Platelet Count 104 10x3/uL (130-400); RBC Distribution Width 14.6 % (11.5-14.5)
[2024-05-23 05:44] LABS: Albumin 1.8 g/dL (3.4-4.8); Anion Gap 9 mmol/L (10-20); BUN (Urea Nitrogen) 8 mg/dL (9.8-20.1); BUN/Creatinine Ratio 10.81; Calc. Creatinine Clearance 88 mL/min (70-130); Calcium 7.2 mg/dL (7.8-10.44); Carbon Dioxide 18 mmol/L (23-31); Chloride 117 mmol/L (98-107); Estimated GFR 87; Glucose 69 mg/dL (80-115); Magnesium 1.7 mg/dL (1.6-2.6); Phosphorus 2.4 mg/dL (2.3-4.7); Potassium 4.8 mmol/L (3.5-5.1); Sodium 139 mmol/L (136-145)
[2024-05-23] MEDS: Magnesium Sulfate In Water 4 GM in Premix 1 BAG IVPB SCH (09:21)
[2024-05-23] MEDS: Lactated Ringer's 1,000 ML IV SCH (09:21)
[2024-05-23] MEDS: NACL ISO OSM IVPB SCH (09:22)
[2024-05-23] MEDS: FLUCONAZOLE IVPB SCH (09:22)
[2024-05-23] MEDS: ADMIXTURE FEE IVPB SCH (09:22)
[2024-05-23] MEDS: Ergocalciferol 1.25 MG(50,000 UNITS) CAP PO SCH (10:34)
[2024-05-23] MEDS: Albumin 25% 25 GM (100 mL) BOT IVPB SCH (17:52)
[2024-05-24 05:36] LABS: Anion Gap 9 mmol/L (10-20); BUN (Urea Nitrogen) 6 mg/dL (9.8-20.1); Calc. Creatinine Clearance 116 mL/min (70-130); Calcium 7.7 mg/dL (7.8-10.44); Carbon Dioxide 23 mmol/L (23-31); Chloride 111 mmol/L (98-107); Estimated GFR 88; Glucose 91 mg/dL (80-115); Potassium 4.1 mmol/L (3.5-5.1); Sodium 139 mmol/L (136-145)
[2024-05-24 05:55] LABS: #Basophils Less than 0.03 10x3/uL (0.0-0.2); %Basophils 0.3 % (0.0-1.0); %Eosinophils 4.7 % (0.0-10.0); %Lymphocytes 25.6 % (21.0-51.0); %Monocytes 6.9 % (0.0-10.0); %Neutrophils 62.2 % (42.0-75.0); Hematocrit 26.5 % (36.0-47.0); Hemoglobin 8.6 g/dL (12.0-16.0); Mean Corpuscular HGB CONC 32.5 g/dL (32.0-36.0); Mean Corpuscular Volume 98.5 fL (78.0-98.0); Mean Platelet Volume 10.6 fL (7.4-10.4); Platelet Count 94 10x3/uL (130-400); RBC Distribution Width 14.5 % (11.5-14.5); Red Blood Cell (RBC) Count 2.69 mill/uL (4.20-5.40)
[2024-05-24 08:30] LABS: Magnesium 1.7 mg/dL (1.6-2.6); Phosphorus 1.7 mg/dL (2.3-4.7)
[2024-05-24] MEDS: Magnesium Sulfate In Water 4 GM in Premix 1 BAG IVPB SCH (10:18)
[2024-05-24] MEDS: Sodium Phosphate 30 MMOL in Sodium Chloride 0.9% 250 ML 250 ML IVPB SCH ×2 (11:30→13:26)
[2024-05-24] MEDS: Lactated Ringer's 1,000 ML IV SCH (16:40)
[2024-05-24] MEDS: Diphenoxylate HCl/Atropine Tablet PO SCH (18:06)
[2024-05-24 23:31] LABS: Campy jejuni + coli by PCR Negative (Negative); STEC Shiga Toxin 1+2 Negative (Negative); Salmonella spp. by PCR Negative (Negative); Shigella spp + EIEC by PCR Negative (Negative)
[2024-05-25 04:42] LABS: #Basophils Less than 0.03 10x3/uL (0.0-0.2); %Basophils 0.3 % (0.0-1.0); %Eosinophils 3.8 % (0.0-10.0); %Lymphocytes 24.6 % (21.0-51.0); %Monocytes 7.3 % (0.0-10.0); %Neutrophils 63.7 % (42.0-75.0); Hemoglobin 9.3 g/dL (12.0-16.0); Mean Corpuscular HGB CONC 32.1 g/dL (32.0-36.0); Mean Corpuscular Hemoglobin 31.7 pg (27.0-31.0); Mean Platelet Volume 10.5 fL (7.4-10.4); Platelet Count 88 10x3/uL (130-400); RBC Distribution Width 14.3 % (11.5-14.5); Red Blood Cell (RBC) Count 2.93 mill/uL (4.20-5.40)
[2024-05-25 04:54] LABS: Anion Gap 11 mmol/L (10-20); BUN (Urea Nitrogen) 6 mg/dL (9.8-20.1); Calc. Creatinine Clearance 131 mL/min (70-130); Calcium 7.7 mg/dL (7.8-10.44); Carbon Dioxide 22 mmol/L (23-31); Chloride 107 mmol/L (98-107); Estimated GFR 95; Glucose 75 mg/dL (80-115); Magnesium 1.6 mg/dL (1.6-2.6); Potassium 4.5 mmol/L (3.5-5.1); Sodium 135 mmol/L (136-145)
[2024-05-25 04:55] LABS: Phosphorus 2.9 mg/dL (2.3-4.7)
[2024-05-25] MEDS: Magnesium Sulfate In Water 4 GM in Premix 1 BAG IVPB SCH (10:12)
[2024-05-25] MEDS: Lactated Ringer's 1,000 ML IV SCH (16:47)
[2024-05-26 05:23] LABS: Anion Gap 10 mmol/L (10-20); BUN (Urea Nitrogen) 7 mg/dL (9.8-20.1); Calc. Creatinine Clearance 117 mL/min (70-130); Calcium 7.7 mg/dL (7.8-10.44); Carbon Dioxide 25 mmol/L (23-31); Chloride 109 mmol/L (98-107); Estimated GFR 90; Glucose 74 mg/dL (80-115); Potassium 4.7 mmol/L (3.5-5.1); Sodium 139 mmol/L (136-145)
[2024-05-26 05:27] LABS: #Basophils Less than 0.03 10x3/uL (0.0-0.2); %Basophils 0.3 % (0.0-1.0); %Eosinophils 4.7 % (0.0-10.0); %Lymphocytes 24.5 % (21.0-51.0); %Monocytes 7.5 % (0.0-10.0); %Neutrophils 62.7 % (42.0-75.0); Hemoglobin 9.8 g/dL (12.0-16.0); Mean Corpuscular HGB CONC 31.6 g/dL (32.0-36.0); Mean Corpuscular Hemoglobin 31.6 pg (27.0-31.0); Mean Platelet Volume 9.9 fL (7.4-10.4); Platelet Count 106 10x3/uL (130-400); RBC Distribution Width 14.5 % (11.5-14.5)
[2024-05-27 05:01] LABS: #Basophils Less than 0.03 10x3/uL (0.0-0.2); %Basophils 0.3 % (0.0-1.0); %Eosinophils 4.2 % (0.0-10.0); %Monocytes 7.1 % (0.0-10.0); %Neutrophils 63.1 % (42.0-75.0); Hematocrit 32.5 % (36.0-47.0); Hemoglobin 10.4 g/dL (12.0-16.0); Mean Corpuscular Hemoglobin 31.9 pg (27.0-31.0); Mean Corpuscular Volume 99.7 fL (78.0-98.0); Mean Platelet Volume 10.3 fL (7.4-10.4); Platelet Count 99 10x3/uL (130-400); RBC Distribution Width 14.5 % (11.5-14.5); Red Blood Cell (RBC) Count 3.26 mill/uL (4.20-5.40)
[2024-05-27 05:08] LABS: Anion Gap 11 mmol/L (10-20); BUN (Urea Nitrogen) 7 mg/dL (9.8-20.1); Calc. Creatinine Clearance 125 mL/min (70-130); Calcium 7.9 mg/dL (7.8-10.44); Carbon Dioxide 24 mmol/L (23-31); Chloride 110 mmol/L (98-107); Estimated GFR 94; Glucose 73 mg/dL (80-115); Potassium 4.6 mmol/L (3.5-5.1); Sodium 140 mmol/L (136-145)
[2024-05-27 09:41] LABS: Magnesium 1.3 mg/dL (1.6-2.6); Phosphorus 3.1 mg/dL (2.3-4.7)
[2024-05-27] MEDS: Magnesium Sulfate In Water 4 GM in Premix 1 BAG IVPB SCH (11:01)
[2024-05-28 06:09] LABS: #Basophils Less than 0.03 10x3/uL (0.0-0.2); %Basophils 0.6 % (0.0-1.0); %Eosinophils 4.6 % (0.0-10.0); %Lymphocytes 25.8 % (21.0-51.0); %Monocytes 7.1 % (0.0-10.0); %Neutrophils 61.6 % (42.0-75.0); Hematocrit 29.6 % (36.0-47.0); Hemoglobin 9.5 g/dL (12.0-16.0); Mean Corpuscular HGB CONC 32.1 g/dL (32.0-36.0); Mean Corpuscular Hemoglobin 31.9 pg (27.0-31.0); Mean Corpuscular Volume 99.3 fL (78.0-98.0); Mean Platelet Volume 10.1 fL (7.4-10.4); Platelet Count 112 10x3/uL (130-400); RBC Distribution Width 14.6 % (11.5-14.5); Red Blood Cell (RBC) Count 2.98 mill/uL (4.20-5.40)
[2024-05-28 06:11] LABS: Phosphorus 2.7 mg/dL (2.3-4.7)
[2024-05-28 06:14] LABS: Anion Gap 9 mmol/L (10-20); BUN (Urea Nitrogen) 8 mg/dL (9.8-20.1); Calc. Creatinine Clearance 118 mL/min (70-130); Calcium 7.7 mg/dL (7.8-10.44); Carbon Dioxide 23 mmol/L (23-31); Chloride 109 mmol/L (98-107); Estimated GFR 91; Glucose 78 mg/dL (80-115); Magnesium 1.7 mg/dL (1.6-2.6); Potassium 4.7 mmol/L (3.5-5.1); Sodium 136 mmol/L (136-145)
[2024-05-28] MEDS: Magnesium Sulfate In Water 4 GM in Premix 1 BAG IVPB SCH (06:34)
[2024-05-29 06:24] LABS: #Basophils Less than 0.03 10x3/uL (0.0-0.2); %Basophils 0.2 % (0.0-1.0); %Eosinophils 3.5 % (0.0-10.0); %Lymphocytes 20.2 % (21.0-51.0); %Monocytes 7.3 % (0.0-10.0); %Neutrophils 68.6 % (42.0-75.0); Hematocrit 32.9 % (36.0-47.0); Hemoglobin 10.7 g/dL (12.0-16.0); Mean Corpuscular HGB CONC 32.5 g/dL (32.0-36.0); Mean Corpuscular Volume 98.5 fL (78.0-98.0); Mean Platelet Volume 10.5 fL (7.4-10.4); Platelet Count 123 10x3/uL (130-400); RBC Distribution Width 14.6 % (11.5-14.5); Red Blood Cell (RBC) Count 3.34 mill/uL (4.20-5.40)
[2024-05-29 06:36] LABS: Albumin 2.2 g/dL (3.4-4.8); Anion Gap 13 mmol/L (10-20); BUN (Urea Nitrogen) 9 mg/dL (9.8-20.1); Calc. Creatinine Clearance 117 mL/min (70-130); Calcium 8.1 mg/dL (7.8-10.44); Carbon Dioxide 22 mmol/L (23-31); Chloride 107 mmol/L (98-107); Estimated GFR 90; Glucose 69 mg/dL (80-115); Magnesium 1.7 mg/dL (1.6-2.6); Phosphorus 2.8 mg/dL (2.3-4.7); Potassium 4.4 mmol/L (3.5-5.1); Sodium 138 mmol/L (136-145)
[2024-05-29] MEDS ORDERED: Electrolyte Replacement Protocol FS PRN (09:00)
[2024-05-29] MEDS: Magnesium 2 GM/50 ML(in water) 2 GM in Premix 1 BAG IVPB SCH ×2 (09:36→18:01)
[2024-05-29] MEDS: Morphine 2 MG/ML VIAL SLOW IVP PRN (10:08)
[2024-05-29] MEDS: Magnesium Oxide 400 MG TAB PO SCH (18:02)
[2024-05-30 06:44] LABS: #Basophils Less than 0.03 10x3/uL (0.0-0.2); %Basophils 0.5 % (0.0-1.0); %Eosinophils 3.5 % (0.0-10.0); %Lymphocytes 22.7 % (21.0-51.0); %Monocytes 8.3 % (0.0-10.0); %Neutrophils 64.8 % (42.0-75.0); Hematocrit 31.8 % (36.0-47.0); Mean Corpuscular HGB CONC 31.4 g/dL (32.0-36.0); Mean Corpuscular Hemoglobin 31.1 pg (27.0-31.0); Mean Corpuscular Volume 98.8 fL (78.0-98.0); Mean Platelet Volume 9.9 fL (7.4-10.4); Platelet Count 128 10x3/uL (130-400); RBC Distribution Width 14.6 % (11.5-14.5); Red Blood Cell (RBC) Count 3.22 mill/uL (4.20-5.40)
[2024-05-30 06:51] LABS: Magnesium 2.1 mg/dL (1.6-2.6)
[2024-05-30 06:55] LABS: Albumin 2.1 g/dL (3.4-4.8); Anion Gap 10 mmol/L (10-20); BUN (Urea Nitrogen) 14 mg/dL (9.8-20.1); BUN/Creatinine Ratio 11.57; Calc. Creatinine Clearance 70 mL/min (70-130); Calcium 7.9 mg/dL (7.8-10.44); Carbon Dioxide 24 mmol/L (23-31); Chloride 109 mmol/L (98-107); Estimated GFR 48; Glucose 92 mg/dL (80-115); Phosphorus 3.4 mg/dL (2.3-4.7); Potassium 4.9 mmol/L (3.5-5.1); Sodium 138 mmol/L (136-145)
[2024-05-30] MEDS: Sodium Chloride 0.9% 1,000 ML IV SCH (08:46)
[2024-05-30] MEDS: Fluconazole In NaCl,Iso-Osm 200 MG in Premix 1 BAG IVPB SCH (08:46)
[2024-05-30] MEDS: Magnesium Oxide 400 MG TAB PO SCH (08:46)
[2024-05-30 13:17] VITALS: BMI 36.2
[2024-05-30] MEDS ORDERED: LYTES IN TPN IVPB PRN (13:44)
[2024-05-30] MEDS ORDERED: Bupivacaine PF 0.5% 30 ML VIAL ONE (14:18)
[2024-05-30] MEDS ORDERED: Heparin 10,000 UNITS/ 10 ML VIAL ONE (14:18)
[2024-05-30] MEDS ORDERED: EPINEPHrine 1 MG/ML VIAL ONE (14:18)
[2024-05-30] MEDS ORDERED: Lidocaine 1% PF 5 ML VIAL ONE ×2 (14:18→15:43)
[2024-05-30] MEDS ORDERED: PROPOFOL 0 ML ONE (14:27)
[2024-05-30] MEDS ORDERED: fentaNYL 50 mcg/mL 1 mL Vial ONE ×2 (14:27→15:43)
[2024-05-30] MEDS ORDERED: Midazolam HCl 2 mg/2 ml Vial ONE (14:27)
[2024-05-30] MEDS ORDERED: Ketorolac Tromethamine 30 MG (1 mL) VIAL ONE (14:27)
[2024-05-30] MEDS ORDERED: KETAMINE 100 MG/ML (5ML VIAL) ONE (14:28)
[2024-05-30] MEDS ORDERED: Propofol 500 MG/50 ML VIAL ONE (14:28)
[2024-05-30] MEDS ORDERED: PROPOFOL 20 ML ONE (15:43)
[2024-05-30] MEDS ORDERED: Etomidate 40 MG (20 mL) VIAL ONE (15:45)
[2024-05-30] MEDS ORDERED: CEFAZOLIN 2 GM VIAL ONE (15:46)
[2024-05-30] MEDS ORDERED: CEFAZOLIN 2 GM in Sodium Chloride 0.9% 100 ML IVPB SCH (16:15)
[2024-05-30] MEDS ORDERED: Ondansetron PF 4 MG/2 ML Vial ONE (16:16)
[2024-05-30] MEDS ORDERED: Dexamethasone 4 mg/ml Vial ONE (16:16)
[2024-05-30] MEDS: Fat Emulsion 250 ML, Multivitamins, Adult 10 ML, TRACE ELEMENT CONCENTRATE 1 ML in D15W... IV SCH (17:05)
[2024-05-31 06:36] LABS: #Basophils Less than 0.03 10x3/uL (0.0-0.2); %Basophils 0.3 % (0.0-1.0); %Eosinophils 2.6 % (0.0-10.0); %Lymphocytes 28.1 % (21.0-51.0); %Monocytes 8.5 % (0.0-10.0); %Neutrophils 60.3 % (42.0-75.0); Hematocrit 29.8 % (36.0-47.0); Hemoglobin 9.4 g/dL (12.0-16.0); Mean Corpuscular HGB CONC 31.5 g/dL (32.0-36.0); Mean Corpuscular Hemoglobin 32.3 pg (27.0-31.0); Mean Corpuscular Volume 102.4 fL (78.0-98.0); Mean Platelet Volume 10.2 fL (7.4-10.4); Platelet Count 140 10x3/uL (130-400); RBC Distribution Width 14.8 % (11.5-14.5); Red Blood Cell (RBC) Count 2.91 mill/uL (4.20-5.40)
[2024-05-31 06:55] LABS: Anion Gap 11 mmol/L (10-20); BUN (Urea Nitrogen) 19 mg/dL (9.8-20.1); BUN/Creatinine Ratio 22.09; Calc. Creatinine Clearance 98 mL/min (70-130); Calcium 7.8 mg/dL (7.8-10.44); Carbon Dioxide 25 mmol/L (23-31); Chloride 108 mmol/L (98-107); Estimated GFR 73; Glucose 84 mg/dL (80-115); Phosphorus 3.8 mg/dL (2.3-4.7); Potassium 4.8 mmol/L (3.5-5.1); Sodium 139 mmol/L (136-145)
[2024-05-31 07:51] LABS: Magnesium 1.6 mg/dL (1.6-2.6)
[2024-05-31] MEDS: Magnesium 2 GM/50 ML(in water) 2 GM in Premix 1 BAG IVPB SCH (08:14)
[2024-05-31] MEDS: Magnesium Sulfate In Water 4 GM in Premix 1 BAG IVPB SCH (08:58)
[2024-05-31] MEDS: Apixaban 5 MG TAB PO SCH (09:00)
[2024-06-01 06:38] LABS: #Basophils Less than 0.03 10x3/uL (0.0-0.2); %Basophils 0.4 % (0.0-1.0); %Eosinophils 3.8 % (0.0-10.0); %Lymphocytes 24.7 % (21.0-51.0); %Monocytes 7.3 % (0.0-10.0); %Neutrophils 63.6 % (42.0-75.0); Hematocrit 28.6 % (36.0-47.0); Mean Corpuscular HGB CONC 31.5 g/dL (32.0-36.0); Mean Corpuscular Hemoglobin 31.7 pg (27.0-31.0); Mean Corpuscular Volume 100.7 fL (78.0-98.0); Mean Platelet Volume 10.2 fL (7.4-10.4); Platelet Count 126 10x3/uL (130-400); RBC Distribution Width 14.8 % (11.5-14.5); Red Blood Cell (RBC) Count 2.84 mill/uL (4.20-5.40)
[2024-06-01 06:59] LABS: Phosphorus 2.9 mg/dL (2.3-4.7)
[2024-06-01 07:35] LABS: Albumin 2.1 g/dL (3.4-4.8); Anion Gap 10 mmol/L (10-20); BUN (Urea Nitrogen) 26 mg/dL (9.8-20.1); BUN/Creatinine Ratio 34.67; Calc. Creatinine Clearance 112 mL/min (70-130); Calcium 7.9 mg/dL (7.8-10.44); Carbon Dioxide 27 mmol/L (23-31); Chloride 105 mmol/L (98-107); Estimated GFR 86; Glucose 84 mg/dL (80-115); Magnesium 1.8 mg/dL (1.6-2.6); Phosphorus 2.9 mg/dL (2.3-4.7); Potassium 4.8 mmol/L (3.5-5.1); Sodium 137 mmol/L (136-145)
[2024-06-01] MEDS: Magnesium 2 GM/50 ML(in water) 2 GM in Premix 1 BAG IVPB SCH (11:34)
[2024-06-02] MEDS: Morphine 4 MG/ML VIAL SLOW IVP PRN (01:06)
[2024-06-02 08:14] LABS: Anion Gap 9 mmol/L (10-20); BUN (Urea Nitrogen) 19 mg/dL (9.8-20.1); Calc. Creatinine Clearance 109 mL/min (70-130); Calcium 8.2 mg/dL (7.8-10.44); Carbon Dioxide 28 mmol/L (23-31); Chloride 103 mmol/L (98-107); Estimated GFR 83; Glucose 96 mg/dL (80-115); Potassium 4.3 mmol/L (3.5-5.1); Sodium 136 mmol/L (136-145)
[2024-06-02 10:03] LABS: Magnesium 1.7 mg/dL (1.6-2.6)
[2024-06-02] MEDS: Magnesium 2 GM/50 ML(in water) 2 GM in Premix 1 BAG IVPB SCH (12:28)
[2024-06-02] MEDS: Diclofenac 1% 50 GM TOPICAL GEL TP SCH (17:08)
[2024-06-02] MEDS: Morphine 2 MG/ML VIAL SLOW IVP PRN (18:37)
[2024-06-03 06:20] LABS: Anion Gap 8 mmol/L (10-20); BUN (Urea Nitrogen) 21 mg/dL (9.8-20.1); Calc. Creatinine Clearance 101 mL/min (70-130); Calcium 8.2 mg/dL (7.8-10.44); Carbon Dioxide 29 mmol/L (23-31); Chloride 105 mmol/L (98-107); Estimated GFR 76; Glucose 118 mg/dL (80-115); Magnesium 1.7 mg/dL (1.6-2.6); Potassium 4.3 mmol/L (3.5-5.1); Sodium 138 mmol/L (136-145)
[2024-06-03] MEDS: Magnesium 2 GM/50 ML(in water) 2 GM in Premix 1 BAG IVPB SCH (09:12)
[2024-06-03] MEDS ORDERED: HYDROcodone/Acetaminophen 10/325 mg Tablet PO PRN (12:21)
[2024-06-03] MEDS: traMADol HCl 50 MG TAB PO PRN (16:55)
[2024-06-04] MEDS: Morphine 2 MG/ML VIAL SLOW IVP PRN (18:04)
[2024-06-07 00:25] VITALS: TEMP 98.7
[2024-06-07 07:40] LABS: Anion Gap 10 mmol/L (10-20); BUN (Urea Nitrogen) 21 mg/dL (9.8-20.1); Calc. Creatinine Clearance 120 mL/min (70-130); Calcium 8.4 mg/dL (7.8-10.44); Carbon Dioxide 25 mmol/L (23-31); Chloride 107 mmol/L (98-107); Estimated GFR 93; Glucose 128 mg/dL (80-115); Magnesium 1.6 mg/dL (1.6-2.6); Phosphorus 3.9 mg/dL (2.3-4.7); Potassium 4.3 mmol/L (3.5-5.1); Sodium 138 mmol/L (136-145)
[2024-06-07] MEDS: Magnesium 2 GM/50 ML(in water) 2 GM in Premix 1 BAG IVPB SCH (08:33)
[2024-06-07 09:00] VITALS: BP 116/56
[2024-06-07] MEDS: Morphine 2 MG/ML VIAL SLOW IVP SCH (11:00)
== END 2024-06-07 13:28 | disposition home health service (06) | DRG 683 ==
LOC: ERS 10:33 → 2NO 20:04 → T4-B 05-27 19:00
PROVIDERS: ADMIT Internal Medicine; ATTEND Family Medicine
PROC: 3E033XZ Introduction of Vasopressor into Peripheral Vein, Percutaneous Approach (ICD-10-PCS; 2024-05-23)
PROC: 02HV33Z Insertion of Infusion Device into Superior Vena Cava, Percutaneous Approach (ICD-10-PCS; principal; 2024-05-30)
PROC: B5181ZA Fluoroscopy of Superior Vena Cava using Low Osmolar Contrast, Guidance (ICD-10-PCS; 2024-05-30)
PROC: 3E0436Z Introduction of Nutritional Substance into Central Vein, Percutaneous Approach (ICD-10-PCS; 2024-05-30)
PROC: 3E033XZ Introduction of Vasopressor into Peripheral Vein, Percutaneous Approach (ICD-10-PCS; 2024-05-30)
DX: N17.9 Acute kidney failure, unspecified (principal); B49 Unspecified mycosis; C64.1 Malignant neoplasm of right kidney, except renal pelvis; K94.19 Other complications of enterostomy; E44.1 Mild protein-calorie malnutrition; E87.1 Hypo-osmolality and hyponatremia; N39.0 Urinary tract infection, site not specified; E87.21 Acute metabolic acidosis; I10 Essential (primary) hypertension; S40.022A Contusion of left upper arm, initial encounter; E87.6 Hypokalemia; E83.39 Other disorders of phosphorus metabolism; N28.89 Other specified disorders of kidney and ureter; E87.8 Other disorders of electrolyte and fluid balance, not elsewhere classified; D72.829 Elevated white blood cell count, unspecified; R00.0 Tachycardia, unspecified; E78.00 Pure hypercholesterolemia, unspecified; I48.0 Paroxysmal atrial fibrillation; L89.152 Pressure ulcer of sacral region, stage 2; E66.01 Morbid (severe) obesity due to excess calories; E83.42 Hypomagnesemia; Z93.2 Ileostomy status; Z88.5 Allergy status to narcotic agent; Z91.018 Allergy to other foods; Z90.49 Acquired absence of other specified parts of digestive tract; Z98.51 Tubal ligation status; Z87.891 Personal history of nicotine dependence; Z98.890 Other specified postprocedural states; Z68.36 Body mass index [BMI] 36.0-36.9, adult
CPT/HCPCS: 36415; 51702; 71045; 74176; 80048; 80053; 80069; 81001; 82550; 83605; 83690; 83735; 84100; 84478; 84484; 85025; 87040; 87077; 87086; 87428; 87505; 93005; 96374; 96375; 97139; A6258; J0171; J0665; J0692; J0696; J1100; J1450; J1644; J1885; J2250; J2272; J2405; J2704; J3010; J3370; J3475; J7030; J7050; J7120; P9047

== ENCOUNTER 2024-06-10 12:45 | Emergency (ER) | payer OTHER, MEDICAID ==
[2024-06-10] MEDS ORDERED: Morphine 4 MG/ML VIAL ONE (13:40)
[2024-06-10] MEDS ORDERED: Ondansetron PF 4 MG/2 ML Vial ONE (13:40)
[2024-06-10 14:44] LABS: #Basophils Less than 0.03 10x3/uL (0.0-0.2); %Basophils 0.5 % (0.0-1.0); %Eosinophils 2.4 % (0.0-10.0); %Lymphocytes 24.4 % (21.0-51.0); %Monocytes 10.6 % (0.0-10.0); %Neutrophils 61.9 % (42.0-75.0); Hematocrit 32.5 % (36.0-47.0); Hemoglobin 10.2 g/dL (12.0-16.0); Mean Corpuscular HGB CONC 31.4 g/dL (32.0-36.0); Mean Corpuscular Hemoglobin 31.4 pg (27.0-31.0); Mean Platelet Volume 10.6 fL (7.4-10.4); Platelet Count 141 10x3/uL (130-400); RBC Distribution Width 15.3 % (11.5-14.5); Red Blood Cell (RBC) Count 3.25 mill/uL (4.20-5.40)
[2024-06-10 15:15] LABS: ALT (SGPT) 55 U/L (8-55); AST (SGOT) 70 U/L (5-34); Albumin 2.6 g/dL (3.4-4.8); Alkaline Phosphatase 130 U/L (40-110); Anion Gap 15 mmol/L (10-20); BUN (Urea Nitrogen) 34 mg/dL (9.8-20.1); Calc. Creatinine Clearance 0 mL/min (70-130); Calcium 8.7 mg/dL (7.8-10.44); Carbon Dioxide 23 mmol/L (23-31); Chloride 103 mmol/L (98-107); Estimated GFR 93; Globulin 4.2 g/dL (2.4-3.5); Glucose 92 mg/dL (80-115); Potassium 3.7 mmol/L (3.5-5.1); Protein, Total 6.8 g/dL (5.8-8.1); Sodium 137 mmol/L (136-145)
[2024-06-10 16:18] LABS: INR-International Normal Ratio 1.1; Prothrombin Time 14.3 sec (12.0-14.7)
[2024-06-10 16:19] LABS: PTT 33.5 sec (22.9-36.1)
[2024-06-10] MEDS ORDERED: fentaNYL 50 mcg/mL 1 mL Vial ONE (16:46)
== END 2024-06-10 21:26 | disposition home or self-care (01) ==
LOC: ERS 12:45
DX: D64.9 Anemia, unspecified (principal); K94.09 Other complications of colostomy; I48.91 Unspecified atrial fibrillation; I10 Essential (primary) hypertension; Z55.6 Problems related to health literacy; Z87.891 Personal history of nicotine dependence
CPT/HCPCS: 80053; 85025; 85610; 85730; 93005; J2272; J2405; J3010; 36415; 96374; 96375

== ENCOUNTER 2024-06-11 23:08 | Emergency (ER) | payer OTHER, MEDICAID ==
[2024-06-12] MEDS ORDERED: Morphine 4 MG/ML VIAL ONE ×2 (01:27→09:03)
[2024-06-12] MEDS ORDERED: Ondansetron PF 4 MG/2 ML Vial ONE (01:27)
[2024-06-12 03:06] LABS: #Basophils Less than 0.03 10x3/uL (0.0-0.2); %Basophils 0.4 % (0.0-1.0); %Eosinophils 4.3 % (0.0-10.0); %Lymphocytes 25.6 % (21.0-51.0); %Monocytes 10.9 % (0.0-10.0); %Neutrophils 58.6 % (42.0-75.0); Hemoglobin 9.6 g/dL (12.0-16.0); Mean Corpuscular Hemoglobin 30.7 pg (27.0-31.0); Mean Corpuscular Volume 95.8 fL (78.0-98.0); Platelet Count 170 10x3/uL (130-400); Red Blood Cell (RBC) Count 3.13 mill/uL (4.20-5.40)
[2024-06-12 03:20] LABS: ALT (SGPT) 53 U/L (8-55); AST (SGOT) 65 U/L (5-34); Albumin 2.7 g/dL (3.4-4.8); Alkaline Phosphatase 128 U/L (40-110); Anion Gap 14 mmol/L (10-20); BUN (Urea Nitrogen) 38 mg/dL (9.8-20.1); Calc. Creatinine Clearance 0 mL/min (70-130); Calcium 8.5 mg/dL (7.8-10.44); Carbon Dioxide 24 mmol/L (23-31); Chloride 100 mmol/L (98-107); Estimated GFR 83; Globulin 4.1 g/dL (2.4-3.5); Glucose 97 mg/dL (80-115); Potassium 3.4 mmol/L (3.5-5.1); Protein, Total 6.8 g/dL (5.8-8.1); Sodium 135 mmol/L (136-145)
[2024-06-12 03:22] LABS: INR-International Normal Ratio 1.1; Prothrombin Time 14.7 sec (12.0-14.7)
[2024-06-12 03:23] LABS: PTT 29.5 sec (22.9-36.1)
[2024-06-12] MEDS ORDERED: Ketorolac Tromethamine 30 MG (1 mL) VIAL ONE (05:59)
== END 2024-06-12 11:00 | disposition home or self-care (01) ==
LOC: ERS 23:08
DX: T82.848A Pain due to vascular prosthetic devices, implants and grafts, initial encounter (principal); Z43.3 Encounter for attention to colostomy; I10 Essential (primary) hypertension; I48.91 Unspecified atrial fibrillation; Z79.01 Long term (current) use of anticoagulants; Z87.891 Personal history of nicotine dependence
CPT/HCPCS: 71260; 80053; 85025; 85610; 85730; 96374; 96375; 96376; 99285; J1885; J2272; J2405; 36415; J1642

== ENCOUNTER 2024-06-17 11:26 | Inpatient (IN) | payer OTHER, MEDICAID ==
[2024-06-17] MEDS ORDERED: Magnesium 2 GM/50 ML BAG (IN WATER) ONE (11:54)
[2024-06-17 14:04] LABS: Actual Bicarbonate (HCO3v) 30.9 mEq/L (22-28); Analyzer IN Cardio ER; Base Excess 6.8 mEq/L (-2.0 to +3.0); Calcium, Ionized (venous) 1.11 mmol/L (1.16-1.32); Chloride (VBG) 87 mmol/L (98-106); Hematocrit-VBG 39 % (36.0-47.0); Hemoglobin (Hb) 13.4 g/dL (11.7-16.1); Potassium (VBG) 3.02 mmol/L (3.70-5.30); Sodium 133 mmol/L (133-146); pH (venous) 7.486 (7.32-7.43)
[2024-06-17 14:08] LABS: #Basophils Less than 0.03 10x3/uL (0.0-0.2); %Basophils 0.2 % (0.0-1.0); %Eosinophils 1.2 % (0.0-10.0); %Lymphocytes 15.6 % (21.0-51.0); %Monocytes 8.2 % (0.0-10.0); %Neutrophils 74.5 % (42.0-75.0); Hematocrit 36.7 % (36.0-47.0); Hemoglobin 12.3 g/dL (12.0-16.0); Mean Corpuscular HGB CONC 33.5 g/dL (32.0-36.0); Mean Corpuscular Hemoglobin 30.9 pg (27.0-31.0); Mean Corpuscular Volume 92.2 fL (78.0-98.0); Mean Platelet Volume 11.4 fL (7.4-10.4); Platelet Count 196 10x3/uL (130-400); RBC Distribution Width 14.5 % (11.5-14.5); Red Blood Cell (RBC) Count 3.98 mill/uL (4.20-5.40)
[2024-06-17] MEDS ORDERED: Morphine 2 MG/ML VIAL ONE (14:19)
[2024-06-17 14:23] LABS: ALT (SGPT) 45 U/L (8-55); AST (SGOT) 56 U/L (5-34); Albumin 3.3 g/dL (3.4-4.8); Alkaline Phosphatase 120 U/L (40-110); Anion Gap 18 mmol/L (10-20); BUN (Urea Nitrogen) 78 mg/dL (9.8-20.1); Bilirubin, Total 1.4 mg/dL (0.2-1.2); Calc. Creatinine Clearance 0 mL/min (70-130); Calcium 9.3 mg/dL (7.8-10.44); Carbon Dioxide 32 mmol/L (23-31); Chloride 86 mmol/L (98-107); Estimated GFR 43; Globulin 4.8 g/dL (2.4-3.5); Glucose 121 mg/dL (80-115); Lipase 32 U/L (8-78); Magnesium 2.9 mg/dL (1.6-2.6); Potassium 2.9 mmol/L (3.5-5.1); Protein, Total 8.1 g/dL (5.8-8.1); Sodium 133 mmol/L (136-145)
[2024-06-17 14:29] LABS: Troponin I Less than 0.010 ng/mL (< 0.028)
[2024-06-17 15:09] LABS: Bilirubin Negative (Negative); Blood, Urine Negative (Negative); CAUTI Indications for Culture Dysuria,urgency,freq; Clarity Clear (Clear); Glucose, Urine (Dipstick) Normal (Negative); Ketone, Urine Negative (Negative); Leukocyte Negative Leu/uL (Negative); Nitrite Negative (Negative); Protein, Urine (Dipstick) Negative (Neg-Trace); RBC/HPF 0-3 HPF (0-3); Specific Gravity, Urine 1.013 (1.002-1.036); Squamous Epithelial 0-3 HPF (0-3); Urobilinogen Normal mg/dL (Less than 2); WBC/HPF 0-3 HPF (0-3)
[2024-06-17 15:24] LABS: Bacteria/HPF 1+ HPF (None Seen)
[2024-06-17 15:25] LABS: Urine Culture Reflex No No
[2024-06-17] MEDS ORDERED: NS 0.9% w/ 20 MEQ KCL 1,000 ML ONE (15:31)
[2024-06-17] MEDS ORDERED: Potassium Chloride 40 MEQ in Premix 1 BAG IVPB SCH (16:00)
[2024-06-17 17:56] VITALS: BMI 28.5
[2024-06-17] MEDS: Potassium Chloride 20 MEQ in Premix 1 BAG IVPB SCH (18:13)
[2024-06-17] MEDS: Sodium Chloride 0.9% 1,000 ML IV SCH (18:13)
[2024-06-17] MEDS: Pancrelipase DR 12,000 1 CAP PO SCH (18:19)
[2024-06-17] MEDS: Diphenoxylate HCl/Atropine Tablet PO SCH (18:20)
[2024-06-17] MEDS: Opium Tincture 10% (1ml Charge) PO SCH (18:51)
[2024-06-17 19:17] LABS: Anion Gap 14 mmol/L (10-20); BUN (Urea Nitrogen) 61 mg/dL (9.8-20.1); Calc. Creatinine Clearance 55 mL/min (70-130); Carbon Dioxide 29 mmol/L (23-31); Chloride 95 mmol/L (98-107); Estimated GFR 48; Glucose 122 mg/dL (80-115); Potassium 3.1 mmol/L (3.5-5.1); Sodium 135 mmol/L (136-145)
[2024-06-17] MEDS: Apixaban 5 MG TAB PO SCH (20:40)
[2024-06-17] MEDS: Amiodarone 200 MG TAB PO SCH (20:40)
[2024-06-17] MEDS: Loperamide HCl 2 MG CAP PO SCH (20:40)
[2024-06-17] MEDS: Pantoprazole DR 40 MG TAB PO SCH (20:41)
[2024-06-17] MEDS ORDERED: Potassium Chloride 20 MEQ in Premix 1 BAG IVPB SCH (21:00)
[2024-06-17] MEDS: Potassium Chloride 10 MEQ in Premix 1 BAG IVPB SCH (22:23)
[2024-06-17] MEDS: Acetaminophen 325 MG TAB PO PRN (23:44)
[2024-06-18 06:07] LABS: ALT (SGPT) 39 U/L (8-55); AST (SGOT) 58 U/L (5-34); Albumin 2.6 g/dL (3.4-4.8); Alkaline Phosphatase 97 U/L (40-110); Anion Gap 10 mmol/L (10-20); BUN (Urea Nitrogen) 49 mg/dL (9.8-20.1); Bilirubin, Total 0.9 mg/dL (0.2-1.2); Calc. Creatinine Clearance 70 mL/min (70-130); Carbon Dioxide 27 mmol/L (23-31); Chloride 103 mmol/L (98-107); Estimated GFR 64; Globulin 3.5 g/dL (2.4-3.5); Glucose 96 mg/dL (80-115); Magnesium 2.1 mg/dL (1.6-2.6); Phosphorus 2.4 mg/dL (2.3-4.7); Potassium 3.3 mmol/L (3.5-5.1); Protein, Total 6.1 g/dL (5.8-8.1); Sodium 137 mmol/L (136-145)
[2024-06-18 06:10] LABS: #Basophils Less than 0.03 10x3/uL (0.0-0.2); %Basophils 0.4 % (0.0-1.0); %Eosinophils 4.3 % (0.0-10.0); %Lymphocytes 22.1 % (21.0-51.0); Hematocrit 29.4 % (36.0-47.0); Hemoglobin 9.3 g/dL (12.0-16.0); Mean Corpuscular HGB CONC 31.6 g/dL (32.0-36.0); Mean Corpuscular Hemoglobin 30.1 pg (27.0-31.0); Mean Corpuscular Volume 95.1 fL (78.0-98.0); Mean Platelet Volume 11.3 fL (7.4-10.4); Platelet Count 142 10x3/uL (130-400); RBC Distribution Width 14.5 % (11.5-14.5); Red Blood Cell (RBC) Count 3.09 mill/uL (4.20-5.40)
[2024-06-18] MEDS: Morphine 2 MG/ML VIAL SLOW IVP SCH (08:50)
[2024-06-18] MEDS: Potassium Chloride 20 MEQ in Premix 1 BAG IVPB SCH (08:51)
[2024-06-18] MEDS: Metamucil PACK PO SCH (09:16)
[2024-06-18] MEDS: Sodium Chloride 0.9% 1,000 ML IV SCH (09:39)
[2024-06-18] MEDS: Morphine 2 MG/ML VIAL SLOW IVP PRN (11:28)
[2024-06-18 12:47] LABS: Anion Gap 10 mmol/L (10-20); BUN (Urea Nitrogen) 35 mg/dL (9.8-20.1); Calc. Creatinine Clearance 79 mL/min (70-130); Calcium 7.2 mg/dL (7.8-10.44); Carbon Dioxide 22 mmol/L (23-31); Chloride 109 mmol/L (98-107); Estimated GFR 75; Glucose 126 mg/dL (80-115); Sodium 134 mmol/L (136-145)
[2024-06-18 13:37] LABS: Potassium 3.4 mmol/L (3.5-5.1)
[2024-06-18] MEDS: Potassium Chloride 20 MEQ TAB PO SCH (15:03)
[2024-06-18] MEDS: Ondansetron PF 4 MG/2 ML Vial IVP PRN (21:50)
[2024-06-18] MEDS ORDERED: D5W-AA 4.25% with LYTES 1,000 ML IV SCH (23:00)
[2024-06-18] MEDS: Amino Acids 4.25 %/Dextrose 5% 2,000 ML IV SCH (23:12)
[2024-06-18] MEDS: AA 4.25 %/CALCIUM/LYTES/D5W 2,000 ML IV SCH (23:49)
[2024-06-19 09:25] LABS: Phosphorus 1.8 mg/dL (2.3-4.7)
[2024-06-19 09:26] LABS: ALT (SGPT) 37 U/L (8-55); AST (SGOT) 50 U/L (5-34); Albumin 2.5 g/dL (3.4-4.8); Alkaline Phosphatase 91 U/L (40-110); Anion Gap 9 mmol/L (10-20); BUN (Urea Nitrogen) 21 mg/dL (9.8-20.1); Bilirubin, Total 0.6 mg/dL (0.2-1.2); Calc. Creatinine Clearance 86 mL/min (70-130); Calcium 7.8 mg/dL (7.8-10.44); Carbon Dioxide 22 mmol/L (23-31); Chloride 109 mmol/L (98-107); Estimated GFR 83; Globulin 3.3 g/dL (2.4-3.5); Glucose 105 mg/dL (80-115); Potassium 3.9 mmol/L (3.5-5.1); Protein, Total 5.8 g/dL (5.8-8.1); Sodium 136 mmol/L (136-145)
[2024-06-19] MEDS: Benzocaine/Menthol 1 LOZ LOZ PO PRN (09:29)
[2024-06-19 09:38] LABS: #Basophils Less than 0.03 10x3/uL (0.0-0.2); %Basophils 0.3 % (0.0-1.0); %Eosinophils 5.6 % (0.0-10.0); %Monocytes 8.2 % (0.0-10.0); %Neutrophils 63.6 % (42.0-75.0); Hematocrit 28.4 % (36.0-47.0); Hemoglobin 8.9 g/dL (12.0-16.0); Mean Corpuscular HGB CONC 31.3 g/dL (32.0-36.0); Mean Corpuscular Hemoglobin 30.6 pg (27.0-31.0); Mean Corpuscular Volume 97.6 fL (78.0-98.0); Mean Platelet Volume 11.5 fL (7.4-10.4); Platelet Count 120 10x3/uL (130-400); RBC Distribution Width 14.1 % (11.5-14.5); Red Blood Cell (RBC) Count 2.91 mill/uL (4.20-5.40)
[2024-06-19] MEDS: PHOS-NAK 1 PKT PACK PO SCH (12:10)
[2024-06-19] MEDS: Cholestyramine/Aspartame 4 gm Packet PO SCH ×2 (12:10→21:22)
[2024-06-19] MEDS ORDERED: Electrolyte Replacement Protocol FS PRN (14:45)
[2024-06-19 14:47] LABS: Bacteria/HPF 4+ HPF (None Seen); Bilirubin Negative (Negative); Blood, Urine Trace (Negative); CAUTI Indications for Culture Dysuria,urgency,freq; Clarity Turbid (Clear); Glucose, Urine (Dipstick) Normal (Negative); Ketone, Urine Negative (Negative); Leukocyte 500 Leu/uL (Negative); Nitrite 2+ (Negative); Protein, Urine (Dipstick) 20 mg/dL (Neg-Trace); RBC/HPF 0-3 HPF (0-3); Squamous Epithelial 0-3 HPF (0-3); Urobilinogen Normal mg/dL (Less than 2); WBC/HPF Greater than 50 HPF (0-3)
[2024-06-19 14:50] LABS: Urine Culture Reflex Yes Yes
[2024-06-19] MEDS: cefTRIAXone\\ROCEPHIN 1 GM in Sodium Chloride 0.9% 100 ML IVPB SCH (17:00)
[2024-06-19] MEDS: TPN IV SCH (17:30)
[2024-06-20 04:14] LABS: #Basophils Less than 0.03 10x3/uL (0.0-0.2); %Basophils 0.3 % (0.0-1.0); %Eosinophils 4.1 % (0.0-10.0); %Lymphocytes 21.9 % (21.0-51.0); %Neutrophils 65.4 % (42.0-75.0); Hematocrit 28.9 % (36.0-47.0); Hemoglobin 8.6 g/dL (12.0-16.0); Mean Corpuscular HGB CONC 29.8 g/dL (32.0-36.0); Mean Corpuscular Volume 104.3 fL (78.0-98.0); Mean Platelet Volume 11.9 fL (7.4-10.4); Platelet Count 111 10x3/uL (130-400); RBC Distribution Width 13.9 % (11.5-14.5); Red Blood Cell (RBC) Count 2.77 mill/uL (4.20-5.40)
[2024-06-20 04:28] LABS: Phosphorus 1.6 mg/dL (2.3-4.7)
[2024-06-20 04:33] LABS: ALT (SGPT) 25 U/L (8-55); AST (SGOT) 39 U/L (5-34); Albumin 2.2 g/dL (3.4-4.8); Alkaline Phosphatase 68 U/L (40-110); Anion Gap 10 mmol/L (10-20); BUN (Urea Nitrogen) 31 mg/dL (9.8-20.1); Bilirubin, Total 0.4 mg/dL (0.2-1.2); Calc. Creatinine Clearance 88 mL/min (70-130); Calcium 7.8 mg/dL (7.8-10.44); Carbon Dioxide 20 mmol/L (23-31); Chloride 111 mmol/L (98-107); Estimated GFR 86; Globulin 3.3 g/dL (2.4-3.5); Glucose 125 mg/dL (80-115); Potassium 4.5 mmol/L (3.5-5.1); Protein, Total 5.5 g/dL (5.8-8.1); Sodium 136 mmol/L (136-145)
[2024-06-20] MEDS: PHOS-NAK 1 PKT PACK PO SCH (09:36)
[2024-06-20] MEDS: traMADol HCl 50 MG TAB PO PRN (15:30)
[2024-06-20 16:17] LABS: Influenza A by NAA Not Detected (NotDetected); Influenza B by NAA Not Detected (NotDetected); SARS-CoV-2 NAA Rapid Test Not Detected (NotDetected)
[2024-06-20] MEDS: Morphine 2 MG/ML VIAL SLOW IVP SCH (17:40)
[2024-06-20] MEDS: Promethazine HCl 12.5 MG in Sodium Chloride 0.9% 50 ML IVPB SCH (21:37)
[2024-06-21 08:46] LABS: #Basophils Less than 0.03 10x3/uL (0.0-0.2); %Basophils 0.3 % (0.0-1.0); %Eosinophils 1.8 % (0.0-10.0); %Lymphocytes 9.9 % (21.0-51.0); %Monocytes 5.2 % (0.0-10.0); %Neutrophils 82.5 % (42.0-75.0); Hematocrit 29.1 % (36.0-47.0); Hemoglobin 9.2 g/dL (12.0-16.0); Mean Corpuscular HGB CONC 31.6 g/dL (32.0-36.0); Mean Corpuscular Hemoglobin 30.6 pg (27.0-31.0); Mean Corpuscular Volume 96.7 fL (78.0-98.0); Platelet Count 130 10x3/uL (130-400); Red Blood Cell (RBC) Count 3.01 mill/uL (4.20-5.40)
[2024-06-21 09:03] LABS: ALT (SGPT) 24 U/L (8-55); AST (SGOT) 26 U/L (5-34); Albumin 2.3 g/dL (3.4-4.8); Alkaline Phosphatase 78 U/L (40-110); Anion Gap 10 mmol/L (10-20); BUN (Urea Nitrogen) 34 mg/dL (9.8-20.1); Bilirubin, Total 0.3 mg/dL (0.2-1.2); Calc. Creatinine Clearance 98 mL/min (70-130); Calcium 8.1 mg/dL (7.8-10.44); Carbon Dioxide 24 mmol/L (23-31); Chloride 107 mmol/L (98-107); Estimated GFR 94; Globulin 3.5 g/dL (2.4-3.5); Glucose 153 mg/dL (80-115); Potassium 3.8 mmol/L (3.5-5.1); Protein, Total 5.8 g/dL (5.8-8.1); Sodium 137 mmol/L (136-145)
[2024-06-21 09:05] LABS: Magnesium 1.8 mg/dL (1.6-2.6); Phosphorus 2.1 mg/dL (2.3-4.7)
[2024-06-21] MEDS: Promethazine HCl 12.5 MG in Sodium Chloride 0.9% 50 ML IVPB SCH (12:10)
[2024-06-21] MEDS: Gentamicin 400 MG in Sodium Chloride 0.9% 100 ML IVPB SCH (12:11)
[2024-06-21] MEDS ORDERED: Iopamidol 370 76% 100 ML VIAL ONE (12:17)
[2024-06-21] MEDS: Magnesium 2 GM/50 ML(in water) 2 GM in Premix 1 BAG IVPB SCH (15:51)
[2024-06-22 05:25] LABS: #Basophils Less than 0.03 10x3/uL (0.0-0.2); %Basophils 0.2 % (0.0-1.0); %Eosinophils 5.3 % (0.0-10.0); %Lymphocytes 17.6 % (21.0-51.0); %Monocytes 5.7 % (0.0-10.0); %Neutrophils 70.8 % (42.0-75.0); Hemoglobin 8.9 g/dL (12.0-16.0); Mean Corpuscular HGB CONC 30.7 g/dL (32.0-36.0); Mean Corpuscular Hemoglobin 29.6 pg (27.0-31.0); Mean Corpuscular Volume 96.3 fL (78.0-98.0); Mean Platelet Volume 11.4 fL (7.4-10.4); Platelet Count 118 10x3/uL (130-400); RBC Distribution Width 14.2 % (11.5-14.5); Red Blood Cell (RBC) Count 3.01 mill/uL (4.20-5.40)
[2024-06-22 05:28] LABS: ALT (SGPT) 25 U/L (8-55); AST (SGOT) 29 U/L (5-34); Albumin 2.2 g/dL (3.4-4.8); Alkaline Phosphatase 77 U/L (40-110); Anion Gap 9 mmol/L (10-20); BUN (Urea Nitrogen) 29 mg/dL (9.8-20.1); Bilirubin, Total 0.4 mg/dL (0.2-1.2); Calc. Creatinine Clearance 98 mL/min (70-130); Calcium 7.8 mg/dL (7.8-10.44); Carbon Dioxide 30 mmol/L (23-31); Chloride 105 mmol/L (98-107); Estimated GFR 94; Globulin 3.4 g/dL (2.4-3.5); Glucose 107 mg/dL (80-115); Potassium 3.6 mmol/L (3.5-5.1); Protein, Total 5.6 g/dL (5.8-8.1); Sodium 140 mmol/L (136-145)
[2024-06-22 05:33] LABS: Phosphorus 3.1 mg/dL (2.3-4.7)
[2024-06-23] MEDS: Gabapentin 300 MG CAP PO SCH (03:50)
[2024-06-23] MEDS: HYDROcodone/Acetaminophen 5/325 mg Tablet PO SCH (03:54)
[2024-06-23 04:49] LABS: #Basophils Less than 0.03 10x3/uL (0.0-0.2); %Basophils 0.4 % (0.0-1.0); %Eosinophils 4.2 % (0.0-10.0); %Lymphocytes 18.3 % (21.0-51.0); %Monocytes 7.9 % (0.0-10.0); Hematocrit 27.9 % (36.0-47.0); Hemoglobin 8.8 g/dL (12.0-16.0); Mean Corpuscular HGB CONC 31.5 g/dL (32.0-36.0); Mean Corpuscular Hemoglobin 30.8 pg (27.0-31.0); Mean Corpuscular Volume 97.6 fL (78.0-98.0); Mean Platelet Volume 11.8 fL (7.4-10.4); Platelet Count 121 10x3/uL (130-400); RBC Distribution Width 14.2 % (11.5-14.5); Red Blood Cell (RBC) Count 2.86 mill/uL (4.20-5.40)
[2024-06-23 05:03] LABS: ALT (SGPT) 32 U/L (8-55); AST (SGOT) 35 U/L (5-34); Albumin 2.2 g/dL (3.4-4.8); Alkaline Phosphatase 90 U/L (40-110); Anion Gap 13 mmol/L (10-20); BUN (Urea Nitrogen) 29 mg/dL (9.8-20.1); Bilirubin, Total 0.4 mg/dL (0.2-1.2); Calc. Creatinine Clearance 88 mL/min (70-130); Carbon Dioxide 25 mmol/L (23-31); Chloride 102 mmol/L (98-107); Estimated GFR 86; Globulin 3.4 g/dL (2.4-3.5); Glucose 128 mg/dL (80-115); Potassium 3.7 mmol/L (3.5-5.1); Protein, Total 5.6 g/dL (5.8-8.1); Sodium 136 mmol/L (136-145)
[2024-06-23] MEDS: PHOS-NAK 1 PKT PACK PO SCH (09:12)
[2024-06-23] MEDS ORDERED: HYDROcodone/Acetaminophen 5/325 mg Tablet PO SCH (20:15)
[2024-06-23] MEDS: Ketorolac Tromethamine 30 MG (1 mL) VIAL IVP SCH (21:22)
[2024-06-24 05:01] LABS: ALT (SGPT) 37 U/L (8-55); AST (SGOT) 46 U/L (5-34); Albumin 2.3 g/dL (3.4-4.8); Alkaline Phosphatase 88 U/L (40-110); Anion Gap 13 mmol/L (10-20); BUN (Urea Nitrogen) 29 mg/dL (9.8-20.1); Bilirubin, Total 0.5 mg/dL (0.2-1.2); Calc. Creatinine Clearance 74 mL/min (70-130); Calcium 8.1 mg/dL (7.8-10.44); Carbon Dioxide 24 mmol/L (23-31); Chloride 103 mmol/L (98-107); Estimated GFR 69; Globulin 3.3 g/dL (2.4-3.5); Glucose 120 mg/dL (80-115); Potassium 4.2 mmol/L (3.5-5.1); Protein, Total 5.6 g/dL (5.8-8.1); Sodium 136 mmol/L (136-145)
[2024-06-24 05:06] LABS: Magnesium 1.6 mg/dL (1.6-2.6)
[2024-06-24 05:22] LABS: #Basophils Less than 0.03 10x3/uL (0.0-0.2); %Basophils 0.3 % (0.0-1.0); %Eosinophils 4.4 % (0.0-10.0); %Lymphocytes 21.1 % (21.0-51.0); %Neutrophils 64.9 % (42.0-75.0); Hematocrit 28.5 % (36.0-47.0); Mean Corpuscular HGB CONC 31.6 g/dL (32.0-36.0); Mean Corpuscular Hemoglobin 30.2 pg (27.0-31.0); Mean Corpuscular Volume 95.6 fL (78.0-98.0); Mean Platelet Volume 11.4 fL (7.4-10.4); Platelet Count 111 10x3/uL (130-400); RBC Distribution Width 14.4 % (11.5-14.5); Red Blood Cell (RBC) Count 2.98 mill/uL (4.20-5.40)
[2024-06-24] MEDS ORDERED: Magnesium 2 GM/50 ML(in water) 2 GM in Premix 1 BAG IVPB SCH (08:30)
[2024-06-24] MEDS: Magnesium 2 GM/50 ML(in water) 2 GM in Premix 1 BAG IVPB SCH (08:35)
[2024-06-24] MEDS ORDERED: LYTES IN TPN IVPB PRN (11:14)
[2024-06-24 12:07] VITALS: BMI 28.4
[2024-06-24] MEDS: FAT EMULSION IV SCH (16:11)
[2024-06-24] MEDS: TRACE ELEMENT IV SCH (16:11)
[2024-06-24] MEDS: [UNRECOGNIZED DRUG - OTHER] IV SCH (16:11)
[2024-06-24] MEDS: MULTIVITAMINS IV SCH (16:11)
[2024-06-24] MEDS: Ketorolac Tromethamine 30 MG (1 mL) VIAL IVP SCH (23:28)
[2024-06-25 03:58] LABS: #Basophils Less than 0.03 10x3/uL (0.0-0.2); %Basophils 0.3 % (0.0-1.0); %Eosinophils 4.1 % (0.0-10.0); %Monocytes 6.4 % (0.0-10.0); %Neutrophils 66.9 % (42.0-75.0); Hemoglobin 8.5 g/dL (12.0-16.0); Mean Corpuscular HGB CONC 31.5 g/dL (32.0-36.0); Mean Corpuscular Hemoglobin 30.4 pg (27.0-31.0); Mean Corpuscular Volume 96.4 fL (78.0-98.0); Mean Platelet Volume 10.7 fL (7.4-10.4); Platelet Count 116 10x3/uL (130-400); RBC Distribution Width 14.2 % (11.5-14.5)
[2024-06-25 04:07] LABS: Magnesium 1.9 mg/dL (1.6-2.6); Phosphorus 3.8 mg/dL (2.3-4.7)
[2024-06-25 04:09] LABS: ALT (SGPT) 43 U/L (8-55); AST (SGOT) 53 U/L (5-34); Albumin 2.2 g/dL (3.4-4.8); Alkaline Phosphatase 99 U/L (40-110); Anion Gap 11 mmol/L (10-20); BUN (Urea Nitrogen) 22 mg/dL (9.8-20.1); Bilirubin, Total 0.5 mg/dL (0.2-1.2); Calc. Creatinine Clearance 88 mL/min (70-130); Calcium 8.1 mg/dL (7.8-10.44); Carbon Dioxide 22 mmol/L (23-31); Chloride 108 mmol/L (98-107); Estimated GFR 86; Globulin 3.5 g/dL (2.4-3.5); Glucose 119 mg/dL (80-115); Potassium 4.4 mmol/L (3.5-5.1); Protein, Total 5.7 g/dL (5.8-8.1); Sodium 137 mmol/L (136-145)
[2024-06-25] MEDS: Magnesium 2 GM/50 ML(in water) 2 GM in Premix 1 BAG IVPB SCH (08:58)
[2024-06-25 19:32] VITALS: BP 111/53; TEMP 98.9
== END 2024-06-26 17:08 | disposition home health service (06) | DRG 683 ==
LOC: ERS 11:26 → 2NO 15:30
PROVIDERS: ADMIT Family Medicine; ATTEND Family Medicine
DX: N17.9 Acute kidney failure, unspecified (principal); E87.1 Hypo-osmolality and hyponatremia; N39.0 Urinary tract infection, site not specified; K56.600 Partial intestinal obstruction, unspecified as to cause; E87.6 Hypokalemia; R55 Syncope and collapse; E78.00 Pure hypercholesterolemia, unspecified; I10 Essential (primary) hypertension; I48.91 Unspecified atrial fibrillation; Z88.5 Allergy status to narcotic agent; Z79.899 Other long term (current) drug therapy; Z79.01 Long term (current) use of anticoagulants; Z90.49 Acquired absence of other specified parts of digestive tract; E86.0 Dehydration; E83.41 Hypermagnesemia; E66.9 Obesity, unspecified; Z68.28 Body mass index [BMI] 28.0-28.9, adult; J02.9 Acute pharyngitis, unspecified
CPT/HCPCS: 36415; 71045; 74177; 80053; 81001; 82805; 83605; 83690; 83735; 84100; 84478; 84484; 85025; 86850; 86900; 86901; 87040; 87077; 87086; 87149; 87186; 93005; 93010; 96361; 96365; 96367; 96375; 97139; J0696; J1580; J1885; J2272; J2405; J2550; J3475; J3480; J7030; Q9967

== ENCOUNTER 2025-03-01 22:08 | Inpatient (IN) | payer OTHER, MEDICAID ==
[~2025-03-01 22:08] MED LIST: Iopamidol-370 76% 500 ML MDV (1 ML CHARGE) ONE
[2025-03-01] MEDS ORDERED: Ondansetron PF 4 MG/2 ML Vial ONE (23:05)
[2025-03-02 00:11] LABS: #Basophils Less than 0.03 10x3/uL (0.0-0.2); #Eosinophils 0.11 10x3/uL (0.0-0.7); #Monocytes 0.86 10x3/uL (0.11-0.59); #Neutrophils 4.11 10x3/uL (1.40-6.50); %Basophils 0.2 % (0.0-1.0); %Eosinophils 1.7 % (0.0-10.0); %Lymphocytes 22.1 % (21.0-51.0); %Monocytes 13.1 % (0.0-10.0); %Neutrophils 62.7 % (42.0-75.0); Hematocrit 35.4 % (36.0-47.0); Hemoglobin 11.3 g/dL (12.0-16.0); Mean Corpuscular Hemoglobin 27.4 pg (27.0-31.0); Mean Corpuscular Volume 85.7 fL (78.0-98.0); Platelet Count 168 10x3/uL (130-400); Red Blood Cell (RBC) Count 4.13 mill/uL (4.20-5.40); White Blood Cell (WBC) Count 6.55 10x3/uL (4.8-10.8)
[2025-03-02 00:26] LABS: ALT (SGPT) 46 U/L (Less than 34); AST (SGOT) 66 U/L (11-34); Albumin 3.4 g/dL (3.1-4.5); Alkaline Phosphatase 127 U/L (40-110); Anion Gap 17 mmol/L (10-20); BUN (Urea Nitrogen) 67 mg/dL (9.8-20.1); Bilirubin, Total 1.3 mg/dL (0.3-1.2); Calc. Creatinine Clearance 0 mL/min (70-130); Calcium 8.9 mg/dL (7.8-10.44); Carbon Dioxide 30 mmol/L (23-31); Chloride 93 mmol/L (98-107); Globulin 4.6 g/dL (2.4-3.5); Glucose 109 mg/dL (80-115); Lipase 47 U/L (8-78); Potassium 4.2 mmol/L (3.5-5.1); Sodium 136 mmol/L (136-145)
[2025-03-02] MEDS ORDERED: Acetaminophen 325 MG TAB PO PRN (03:05)
[2025-03-02] MEDS ORDERED: Non-Formulary Item 1 EACH (Naloxone Hcl [Narcan] 4 MG Spray) NS PRN (03:11)
[2025-03-02 04:20] LABS: #Basophils Less than 0.03 10x3/uL (0.0-0.2); #Eosinophils 0.11 10x3/uL (0.0-0.7); #Monocytes 0.51 10x3/uL (0.11-0.59); #Neutrophils 3.30 10x3/uL (1.40-6.50); %Basophils 0.4 % (0.0-1.0); %Eosinophils 2.0 % (0.0-10.0); %Lymphocytes 26.7 % (21.0-51.0); %Monocytes 9.5 % (0.0-10.0); %Neutrophils 61.2 % (42.0-75.0); Hematocrit 33.3 % (36.0-47.0); Hemoglobin 10.8 g/dL (12.0-16.0); Mean Corpuscular Hemoglobin 26.9 pg (27.0-31.0); Mean Corpuscular Volume 82.8 fL (78.0-98.0); Platelet Count 142 10x3/uL (130-400); Red Blood Cell (RBC) Count 4.02 mill/uL (4.20-5.40); White Blood Cell (WBC) Count 5.39 10x3/uL (4.8-10.8)
[2025-03-02 04:37] LABS: ALT (SGPT) 43 U/L (Less than 34); AST (SGOT) 53 U/L (11-34); Albumin 3.2 g/dL (3.1-4.5); Alkaline Phosphatase 121 U/L (40-110); Anion Gap 16 mmol/L (10-20); BUN (Urea Nitrogen) 63 mg/dL (9.8-20.1); Bilirubin, Total 1.4 mg/dL (0.3-1.2); Calc. Creatinine Clearance 0 mL/min (70-130); Calcium 8.3 mg/dL (7.8-10.44); Carbon Dioxide 27 mmol/L (23-31); Chloride 96 mmol/L (98-107); Globulin 4.3 g/dL (2.4-3.5); Glucose 120 mg/dL (80-115); Potassium 3.8 mmol/L (3.5-5.1); Sodium 135 mmol/L (136-145)
[2025-03-02 04:44] VITALS: BMI 30.2
[2025-03-02 05:41] LABS: Bacteria/HPF 3+ HPF (None Seen); CAUTI Indications for Culture Dysuria,urgency,freq; Glucose, Urine (Dipstick) Normal (Negative); Leukocyte 250 Leu/uL (Negative); Protein, Urine (Dipstick) Negative (Neg-Trace); Specific Gravity, Urine 1.048 (1.002-1.036); Yeast-Budding 1+ HPF (None Seen)
[2025-03-02 05:43] LABS: Urine Culture Reflex Yes Yes
[2025-03-02 05:50] LABS: Sodium, Urine Less than 20 mmol/L (Not Available)
[2025-03-02] MEDS ORDERED: Diphenoxylate HCl/Atropine Tablet ONE (10:13)
[2025-03-02] MEDS ORDERED: Gabapentin 300 MG CAP ONE (10:14)
[2025-03-02] MEDS ORDERED: Apixaban 5 MG TAB ONE (10:14)
[2025-03-02] MEDS ORDERED: cefTRIAXone (ROCEPHIN) 1 GM VIAL ONE (10:14)
[2025-03-02] MEDS ORDERED: Pantoprazole 40 MG DR.TAB ONE (10:14)
[2025-03-02] MEDS: Diphenoxylate HCl/Atropine Tablet PO SCH (10:21)
[2025-03-02] MEDS: Apixaban 5 MG TAB PO SCH (10:21)
[2025-03-02] MEDS: Pantoprazole 40 MG DR.TAB PO SCH (10:21)
[2025-03-02] MEDS: Gabapentin 300 MG CAP PO SCH (10:21)
[2025-03-02] MEDS: cefTRIAXone\\ROCEPHIN 1 GM in Sodium Chloride 0.9% 100 ML IVPB SCH (10:21)
[2025-03-02] MEDS: Ergocalciferol 1.25 MG(50,000 UNITS) CAP PO SCH (11:40)
[2025-03-03 06:04] LABS: #Basophils Less than 0.03 10x3/uL (0.0-0.2); #Eosinophils 0.12 10x3/uL (0.0-0.7); #Monocytes 0.39 10x3/uL (0.11-0.59); #Neutrophils 2.12 10x3/uL (1.40-6.50); %Basophils 0.3 % (0.0-1.0); %Eosinophils 3.3 % (0.0-10.0); %Lymphocytes 27.6 % (21.0-51.0); %Monocytes 10.7 % (0.0-10.0); %Neutrophils 57.8 % (42.0-75.0); Hematocrit 29.6 % (36.0-47.0); Hemoglobin 9.0 g/dL (12.0-16.0); Mean Corpuscular Hemoglobin 26.9 pg (27.0-31.0); Mean Corpuscular Volume 88.6 fL (78.0-98.0); Platelet Count 118 10x3/uL (130-400); Red Blood Cell (RBC) Count 3.34 mill/uL (4.20-5.40); White Blood Cell (WBC) Count 3.66 10x3/uL (4.8-10.8)
[2025-03-03 06:09] LABS: ALT (SGPT) 38 U/L (Less than 34); AST (SGOT) 48 U/L (11-34); Albumin 2.9 g/dL (3.1-4.5); Alkaline Phosphatase 104 U/L (40-110); Anion Gap 13 mmol/L (10-20); BUN (Urea Nitrogen) 38 mg/dL (9.8-20.1); Bilirubin, Total 0.8 mg/dL (0.3-1.2); Calc. Creatinine Clearance 57 mL/min (70-130); Calcium 8.4 mg/dL (7.8-10.44); Carbon Dioxide 29 mmol/L (23-31); Chloride 102 mmol/L (98-107); Globulin 3.6 g/dL (2.4-3.5); Glucose 98 mg/dL (80-115); Potassium 3.9 mmol/L (3.5-5.1); Sodium 140 mmol/L (136-145)
[2025-03-03 06:31] LABS: Platelet Adequacy Comment Platelets Decreased
[2025-03-03] MEDS ORDERED: LYTES IN TPN IVPB PRN (10:11)
[2025-03-03] MEDS ORDERED: Cyclobenzaprine 10 MG TAB PO PRN (11:31)
[2025-03-03] MEDS: Multivitamins, Adult 10 ML, TRACE ELEMENT CONCENTRATE 1 ML in D15W-AA 5% with Lytes 2,0... IV SCH (15:05)
[2025-03-03] MEDS: Mupirocin 1 GM TUBE NASAL DECOLONIZATION NASAL SCH (19:52)
[2025-03-03] MEDS: Acetaminophen 500 MG TAB PO SCH (21:58)
[2025-03-03] MEDS: HYDROmorphone 0.5 MG/0.5 ML SYRINGE SLOW IVP SCH (22:14)
[2025-03-04] MEDS: [UNRECOGNIZED DRUG - REMARK] TOP SCH (01:21)
[2025-03-04 05:10] LABS: #Basophils Less than 0.03 10x3/uL (0.0-0.2); #Eosinophils 0.06 10x3/uL (0.0-0.7); #Monocytes 0.27 10x3/uL (0.11-0.59); #Neutrophils 2.56 10x3/uL (1.40-6.50); %Basophils 0.3 % (0.0-1.0); %Eosinophils 1.6 % (0.0-10.0); %Lymphocytes 21.4 % (21.0-51.0); %Monocytes 7.3 % (0.0-10.0); %Neutrophils 69.1 % (42.0-75.0); Hematocrit 27.9 % (36.0-47.0); Hemoglobin 8.6 g/dL (12.0-16.0); Mean Corpuscular Hemoglobin 27.5 pg (27.0-31.0); Mean Corpuscular Volume 89.1 fL (78.0-98.0); Platelet Count 100 10x3/uL (130-400); Red Blood Cell (RBC) Count 3.13 mill/uL (4.20-5.40); White Blood Cell (WBC) Count 3.70 10x3/uL (4.8-10.8)
[2025-03-04 05:28] LABS: ALT (SGPT) 32 U/L (Less than 34); AST (SGOT) 39 U/L (11-34); Albumin 2.6 g/dL (3.1-4.5); Alkaline Phosphatase 96 U/L (40-110); Anion Gap 10 mmol/L (10-20); BUN (Urea Nitrogen) 21 mg/dL (9.8-20.1); Bilirubin, Total 0.5 mg/dL (0.3-1.2); Calc. Creatinine Clearance 85 mL/min (70-130); Calcium 8.1 mg/dL (7.8-10.44); Carbon Dioxide 29 mmol/L (23-31); Chloride 103 mmol/L (98-107); Globulin 3.3 g/dL (2.4-3.5); Glucose 108 mg/dL (80-115); Magnesium 1.3 mg/dL (1.6-2.6); Potassium 3.9 mmol/L (3.5-5.1); Sodium 138 mmol/L (136-145)
[2025-03-04] MEDS: Magnesium Sulfate In Water 4 GM in Premix 1 BAG IVPB SCH (09:04)
[2025-03-05 05:57] LABS: ALT (SGPT) 21 U/L (Less than 34); AST (SGOT) 22 U/L (11-34); Albumin 2.3 g/dL (3.1-4.5); Alkaline Phosphatase 80 U/L (40-110); Anion Gap 7 mmol/L (10-20); BUN (Urea Nitrogen) 22 mg/dL (9.8-20.1); Bilirubin, Total 0.4 mg/dL (0.3-1.2); Calc. Creatinine Clearance 130 mL/min (70-130); Calcium 7.3 mg/dL (7.8-10.44); Carbon Dioxide 27 mmol/L (23-31); Chloride 109 mmol/L (98-107); Globulin 3.0 g/dL (2.4-3.5); Glucose 101 mg/dL (80-115); Magnesium 1.6 mg/dL (1.6-2.6); Potassium 3.9 mmol/L (3.5-5.1); Sodium 139 mmol/L (136-145)
[2025-03-05 06:19] LABS: #Basophils Less than 0.03 10x3/uL (0.0-0.2); #Eosinophils 0.07 10x3/uL (0.0-0.7); #Monocytes 0.27 10x3/uL (0.11-0.59); #Neutrophils 1.67 10x3/uL (1.40-6.50); %Basophils 0.4 % (0.0-1.0); %Eosinophils 2.5 % (0.0-10.0); %Lymphocytes 28.5 % (21.0-51.0); %Monocytes 9.5 % (0.0-10.0); %Neutrophils 58.7 % (42.0-75.0); Hematocrit 25.5 % (36.0-47.0); Hemoglobin 7.6 g/dL (12.0-16.0); Mean Corpuscular Hemoglobin 27.0 pg (27.0-31.0); Mean Corpuscular Volume 90.7 fL (78.0-98.0); Platelet Count 94 10x3/uL (130-400); Red Blood Cell (RBC) Count 2.81 mill/uL (4.20-5.40); White Blood Cell (WBC) Count 2.84 10x3/uL (4.8-10.8)
[2025-03-05] MEDS: Magnesium 2 GM/50 ML(in water) 2 GM in Premix 1 BAG IVPB SCH (07:59)
[2025-03-05] MEDS: HYDROmorphone 2 MG TAB PO SCH (13:39)
[2025-03-05] MEDS: Acetaminophen 500 MG TAB PO PRN (15:38)
[2025-03-05 15:39] VITALS: BMI 37.6
[2025-03-06 05:47] LABS: #Basophils Less than 0.03 10x3/uL (0.0-0.2); #Eosinophils 0.08 10x3/uL (0.0-0.7); #Monocytes 0.23 10x3/uL (0.11-0.59); #Neutrophils 1.36 10x3/uL (1.40-6.50); %Basophils 0.4 % (0.0-1.0); %Eosinophils 3.2 % (0.0-10.0); %Lymphocytes 32.4 % (21.0-51.0); %Monocytes 9.2 % (0.0-10.0); %Neutrophils 54.4 % (42.0-75.0); Hematocrit 27.4 % (36.0-47.0); Hemoglobin 8.2 g/dL (12.0-16.0); Mean Corpuscular Hemoglobin 27.0 pg (27.0-31.0); Mean Corpuscular Volume 90.1 fL (78.0-98.0); Platelet Count 101 10x3/uL (130-400); Red Blood Cell (RBC) Count 3.04 mill/uL (4.20-5.40); White Blood Cell (WBC) Count 2.50 10x3/uL (4.8-10.8)
[2025-03-06 05:57] LABS: ALT (SGPT) 18 U/L (Less than 34); AST (SGOT) 21 U/L (11-34); Albumin 2.5 g/dL (3.1-4.5); Alkaline Phosphatase 88 U/L (40-110); Anion Gap 9 mmol/L (10-20); BUN (Urea Nitrogen) 25 mg/dL (9.8-20.1); Bilirubin, Total 0.4 mg/dL (0.3-1.2); Calc. Creatinine Clearance 123 mL/min (70-130); Calcium 7.9 mg/dL (7.8-10.44); Carbon Dioxide 27 mmol/L (23-31); Chloride 107 mmol/L (98-107); Globulin 3.1 g/dL (2.4-3.5); Glucose 116 mg/dL (80-115); Magnesium 1.8 mg/dL (1.6-2.6); Potassium 4.5 mmol/L (3.5-5.1); Sodium 138 mmol/L (136-145)
[2025-03-06] MEDS: Magnesium 2 GM/50 ML(in water) 2 GM in Premix 1 BAG IVPB SCH (08:41)
[2025-03-06] MEDS ORDERED: Acetaminophen/Codeine 30-300mg Tablet PO PRN (10:39)
[2025-03-06] MEDS ORDERED: Acetaminophen 325 MG TAB PO PRN (10:41)
[2025-03-06] MEDS: Ibuprofen 600 MG TAB PO PRN (12:27)
[2025-03-06] MEDS: HYDROmorphone 2 MG TAB PO SCH (23:12)
[2025-03-07 06:40] LABS: #Basophils Less than 0.03 10x3/uL (0.0-0.2); #Eosinophils 0.08 10x3/uL (0.0-0.7); #Monocytes 0.28 10x3/uL (0.11-0.59); #Neutrophils 2.90 10x3/uL (1.40-6.50); %Basophils 0.0 % (0.0-1.0); %Eosinophils 2.0 % (0.0-10.0); %Lymphocytes 20.2 % (21.0-51.0); %Monocytes 6.8 % (0.0-10.0); %Neutrophils 70.8 % (42.0-75.0); Hematocrit 28.3 % (36.0-47.0); Hemoglobin 8.4 g/dL (12.0-16.0); Mean Corpuscular Hemoglobin 26.9 pg (27.0-31.0); Mean Corpuscular Volume 90.7 fL (78.0-98.0); Platelet Count 105 10x3/uL (130-400); Red Blood Cell (RBC) Count 3.12 mill/uL (4.20-5.40); White Blood Cell (WBC) Count 4.10 10x3/uL (4.8-10.8)
[2025-03-07 07:15] LABS: ALT (SGPT) 16 U/L (Less than 34); AST (SGOT) 22 U/L (11-34); Albumin 2.5 g/dL (3.1-4.5); Alkaline Phosphatase 94 U/L (40-110); Anion Gap 10 mmol/L (10-20); BUN (Urea Nitrogen) 24 mg/dL (9.8-20.1); Bilirubin, Total 0.4 mg/dL (0.3-1.2); Calc. Creatinine Clearance 127 mL/min (70-130); Calcium 8.1 mg/dL (7.8-10.44); Carbon Dioxide 26 mmol/L (23-31); Chloride 107 mmol/L (98-107); Globulin 3.5 g/dL (2.4-3.5); Glucose 126 mg/dL (80-115); Magnesium 1.7 mg/dL (1.6-2.6); Potassium 4.4 mmol/L (3.5-5.1); Sodium 139 mmol/L (136-145)
[2025-03-07] MEDS: Magnesium 2 GM/50 ML(in water) 2 GM in Premix 1 BAG IVPB SCH (08:44)
[2025-03-07] MEDS: Cyclobenzaprine 10 MG TAB PO SCH (14:48)
[2025-03-08 06:12] LABS: #Basophils Less than 0.03 10x3/uL (0.0-0.2); #Eosinophils 0.09 10x3/uL (0.0-0.7); #Monocytes 0.24 10x3/uL (0.11-0.59); #Neutrophils 1.99 10x3/uL (1.40-6.50); %Basophils 0.0 % (0.0-1.0); %Eosinophils 2.8 % (0.0-10.0); %Lymphocytes 27.7 % (21.0-51.0); %Monocytes 7.5 % (0.0-10.0); %Neutrophils 62.0 % (42.0-75.0); Hematocrit 27.9 % (36.0-47.0); Hemoglobin 8.2 g/dL (12.0-16.0); Mean Corpuscular Hemoglobin 26.9 pg (27.0-31.0); Mean Corpuscular Volume 91.5 fL (78.0-98.0); Platelet Count 101 10x3/uL (130-400); Red Blood Cell (RBC) Count 3.05 mill/uL (4.20-5.40); White Blood Cell (WBC) Count 3.21 10x3/uL (4.8-10.8)
[2025-03-08 06:30] LABS: ALT (SGPT) 15 U/L (Less than 34); AST (SGOT) 21 U/L (11-34); Albumin 2.4 g/dL (3.1-4.5); Alkaline Phosphatase 92 U/L (40-110); Anion Gap 12 mmol/L (10-20); BUN (Urea Nitrogen) 22 mg/dL (9.8-20.1); Bilirubin, Total 0.5 mg/dL (0.3-1.2); Calc. Creatinine Clearance 125 mL/min (70-130); Calcium 8.1 mg/dL (7.8-10.44); Carbon Dioxide 27 mmol/L (23-31); Chloride 108 mmol/L (98-107); Globulin 3.4 g/dL (2.4-3.5); Glucose 97 mg/dL (80-115); Magnesium 1.7 mg/dL (1.6-2.6); Potassium 4.3 mmol/L (3.5-5.1); Sodium 143 mmol/L (136-145)
[2025-03-08] MEDS: Magnesium 2 GM/50 ML(in water) 2 GM in Premix 1 BAG IVPB SCH (08:33)
[2025-03-08] MEDS: Gabapentin 300 MG CAP PO SCH (20:32)
[2025-03-09 03:51] LABS: #Basophils Less than 0.03 10x3/uL (0.0-0.2); #Eosinophils 0.08 10x3/uL (0.0-0.7); #Monocytes 0.24 10x3/uL (0.11-0.59); #Neutrophils 1.75 10x3/uL (1.40-6.50); %Basophils 0.3 % (0.0-1.0); %Eosinophils 2.8 % (0.0-10.0); %Lymphocytes 27.7 % (21.0-51.0); %Monocytes 8.3 % (0.0-10.0); %Neutrophils 60.6 % (42.0-75.0); Hematocrit 26.4 % (36.0-47.0); Hemoglobin 7.7 g/dL (12.0-16.0); Mean Corpuscular Hemoglobin 26.6 pg (27.0-31.0); Mean Corpuscular Volume 91.3 fL (78.0-98.0); Platelet Count 101 10x3/uL (130-400); Red Blood Cell (RBC) Count 2.89 mill/uL (4.20-5.40); White Blood Cell (WBC) Count 2.89 10x3/uL (4.8-10.8)
[2025-03-09 04:34] LABS: ALT (SGPT) 14 U/L (Less than 34); AST (SGOT) 20 U/L (11-34); Albumin 2.3 g/dL (3.1-4.5); Alkaline Phosphatase 88 U/L (40-110); Anion Gap 9 mmol/L (10-20); BUN (Urea Nitrogen) 24 mg/dL (9.8-20.1); Bilirubin, Total 0.4 mg/dL (0.3-1.2); Calc. Creatinine Clearance 117 mL/min (70-130); Calcium 8.0 mg/dL (7.8-10.44); Carbon Dioxide 27 mmol/L (23-31); Chloride 109 mmol/L (98-107); Globulin 3.3 g/dL (2.4-3.5); Glucose 116 mg/dL (80-115); Magnesium 1.6 mg/dL (1.6-2.6); Potassium 4.3 mmol/L (3.5-5.1); Sodium 141 mmol/L (136-145)
[2025-03-09] MEDS: Magnesium 2 GM/50 ML(in water) 2 GM in Premix 1 BAG IVPB SCH (05:48)
[2025-03-10 07:12] LABS: #Basophils Less than 0.03 10x3/uL (0.0-0.2); #Eosinophils 0.06 10x3/uL (0.0-0.7); #Monocytes 0.28 10x3/uL (0.11-0.59); #Neutrophils 2.02 10x3/uL (1.40-6.50); %Basophils 0.3 % (0.0-1.0); %Eosinophils 1.9 % (0.0-10.0); %Lymphocytes 23.7 % (21.0-51.0); %Monocytes 9.0 % (0.0-10.0); %Neutrophils 64.8 % (42.0-75.0); Hematocrit 25.9 % (36.0-47.0); Hemoglobin 7.7 g/dL (12.0-16.0); Mean Corpuscular Hemoglobin 26.8 pg (27.0-31.0); Mean Corpuscular Volume 90.2 fL (78.0-98.0); Platelet Count 98 10x3/uL (130-400); Red Blood Cell (RBC) Count 2.87 mill/uL (4.20-5.40); White Blood Cell (WBC) Count 3.12 10x3/uL (4.8-10.8)
[2025-03-10 07:23] LABS: ALT (SGPT) 14 U/L (Less than 34); AST (SGOT) 23 U/L (11-34); Albumin 2.4 g/dL (3.1-4.5); Alkaline Phosphatase 90 U/L (40-110); Anion Gap 11 mmol/L (10-20); BUN (Urea Nitrogen) 23 mg/dL (9.8-20.1); Bilirubin, Total 0.5 mg/dL (0.3-1.2); Calc. Creatinine Clearance 112 mL/min (70-130); Calcium 7.8 mg/dL (7.8-10.44); Carbon Dioxide 27 mmol/L (23-31); Chloride 106 mmol/L (98-107); Globulin 3.1 g/dL (2.4-3.5); Glucose 126 mg/dL (80-115); Potassium 4.5 mmol/L (3.5-5.1); Sodium 139 mmol/L (136-145)
[2025-03-10] MEDS: Clindamycin 150 MG CAP PO SCH (17:50)
[2025-03-11 06:43] LABS: #Basophils Less than 0.03 10x3/uL (0.0-0.2); #Eosinophils 0.07 10x3/uL (0.0-0.7); #Monocytes 0.25 10x3/uL (0.11-0.59); #Neutrophils 1.65 10x3/uL (1.40-6.50); %Basophils 0.0 % (0.0-1.0); %Eosinophils 2.7 % (0.0-10.0); %Lymphocytes 24.8 % (21.0-51.0); %Monocytes 9.5 % (0.0-10.0); %Neutrophils 63.0 % (42.0-75.0); Hematocrit 26.6 % (36.0-47.0); Hemoglobin 7.8 g/dL (12.0-16.0); Mean Corpuscular Hemoglobin 26.0 pg (27.0-31.0); Mean Corpuscular Volume 88.7 fL (78.0-98.0); Platelet Count 103 10x3/uL (130-400); Red Blood Cell (RBC) Count 3.00 mill/uL (4.20-5.40); White Blood Cell (WBC) Count 2.62 10x3/uL (4.8-10.8)
[2025-03-11 06:52] LABS: ALT (SGPT) 17 U/L (Less than 34); AST (SGOT) 28 U/L (11-34); Albumin 2.4 g/dL (3.1-4.5); Alkaline Phosphatase 96 U/L (40-110); Anion Gap 10 mmol/L (10-20); BUN (Urea Nitrogen) 22 mg/dL (9.8-20.1); Bilirubin, Total 0.5 mg/dL (0.3-1.2); Calc. Creatinine Clearance 118 mL/min (70-130); Calcium 8.1 mg/dL (7.8-10.44); Carbon Dioxide 26 mmol/L (23-31); Chloride 106 mmol/L (98-107); Globulin 3.2 g/dL (2.4-3.5); Glucose 108 mg/dL (80-115); Potassium 4.2 mmol/L (3.5-5.1); Sodium 138 mmol/L (136-145)
[2025-03-11 14:24] VITALS: BP 110/69; TEMP 98.3
== END 2025-03-11 15:22 | disposition home or self-care (01) | DRG 683 ==
LOC: ERS 22:08 → ERHOLD 03-02 03:09 → T4-A 03-02 03:27 → OBSVTOIN 03-03 15:20
PROVIDERS: ADMIT Family Medicine; ATTEND Family Medicine
DX: N17.9 Acute kidney failure, unspecified (principal); K90.829 Short bowel syndrome, unspecified; Z68.41 Body mass index [BMI] 40.0-44.9, adult; N39.0 Urinary tract infection, site not specified; E86.0 Dehydration; I48.0 Paroxysmal atrial fibrillation; D64.9 Anemia, unspecified; Z79.01 Long term (current) use of anticoagulants; Z79.899 Other long term (current) drug therapy; Z88.8 Allergy status to other drugs, medicaments and biological substances; I10 Essential (primary) hypertension; E66.01 Morbid (severe) obesity due to excess calories; Z90.49 Acquired absence of other specified parts of digestive tract; Z98.51 Tubal ligation status; Z87.891 Personal history of nicotine dependence; E80.6 Other disorders of bilirubin metabolism
CPT/HCPCS: 36415; 74177; 80053; 81001; 82550; 82570; 83690; 83735; 84100; 84300; 85025; 87077; 87086; 87186; 96361; 96374; 96375; 96376; 97139; G0378; J0696; J1171; J2270; J2405; J3010; J3475; J7120; Q0162; Q9967

== ENCOUNTER 2025-07-13 22:19 | Inpatient (IN) | payer OTHER, MEDICAID ==
[2025-07-14 01:23] LABS: #Basophils Less than 0.03 10x3/uL (0.0-0.2); #Eosinophils 0.13 10x3/uL (0.0-0.7); #Monocytes 0.34 10x3/uL (0.11-0.59); #Neutrophils 3.68 10x3/uL (1.40-6.50); %Basophils 0.2 % (0.0-1.0); %Eosinophils 2.6 % (0.0-10.0); %Lymphocytes 17.8 % (21.0-51.0); %Monocytes 6.7 % (0.0-10.0); %Neutrophils 72.5 % (42.0-75.0); Hematocrit 31.5 % (36.0-47.0); Hemoglobin 9.6 g/dL (12.0-16.0); Mean Corpuscular Hemoglobin 24.6 pg (27.0-31.0); Mean Corpuscular Volume 80.8 fL (78.0-98.0); Platelet Count 106 10x3/uL (130-400); Red Blood Cell (RBC) Count 3.90 mill/uL (4.20-5.40); White Blood Cell (WBC) Count 5.07 10x3/uL (4.8-10.8)
[2025-07-14 01:57] LABS: Microcytosis SLIGHT = 6-15 cells (100X) (0-5/hpf); Plasma Cells 0 % (0-0); Platelet Adequacy Comment Appears Decreased
[2025-07-14] MEDS ORDERED: Melatonin 3 MG TAB PO PRN (03:00)
[2025-07-14] MEDS ORDERED: Cyclobenzaprine 10 MG TAB PO PRN (03:27)
[2025-07-14 04:36] VITALS: BMI 37.4
[2025-07-14 06:38] LABS: ALT (SGPT) 33 U/L (Less than 34); AST (SGOT) 48 U/L (11-34); Albumin 2.8 g/dL (3.1-4.5); Alkaline Phosphatase 118 U/L (40-110); Anion Gap 14 mmol/L (10-20); BUN (Urea Nitrogen) 32 mg/dL (9.8-20.1); Bilirubin, Total 1.1 mg/dL (0.3-1.2); Calc. Creatinine Clearance 89 mL/min (70-130); Calcium 8.7 mg/dL (7.8-10.44); Carbon Dioxide 25 mmol/L (23-31); Chloride 106 mmol/L (98-107); Globulin 3.8 g/dL (2.4-3.5); Glucose 101 mg/dL (83-110); Potassium 4.3 mmol/L (3.5-5.1); Sodium 141 mmol/L (136-145)
[2025-07-14] MEDS ORDERED: Sodium Bicarbonate 2.5 MEQ/5 ML SDV ONE (08:12)
[2025-07-14] MEDS ORDERED: Lidocaine 1% w/Epinephrine 1:100K 20 ML VIAL ONE (08:13)
[2025-07-14] MEDS: Famotidine 20 MG TAB PO SCH (08:36)
[2025-07-14] MEDS: Diphenoxylate HCl/Atropine Tablet PO SCH (08:37)
[2025-07-14] MEDS: Pantoprazole 40 MG DR.TAB PO SCH (08:37)
[2025-07-14] MEDS: Gabapentin 300 MG CAP PO SCH (08:37)
[2025-07-14] MEDS: Ferrous Sulfate 325 MG TAB PO SCH (11:55)
[2025-07-14] MEDS: Diclofenac 1% 50 GM TOPICAL GEL TP SCH (11:55)
[2025-07-14 12:57] VITALS: BMI 37.4
[2025-07-14] MEDS: Apixaban 5 MG TAB PO SCH (20:32)
[2025-07-14] MEDS: Acetaminophen 325 MG TAB PO PRN (20:33)
[2025-07-15 05:56] LABS: Anion Gap 10 mmol/L (10-20); BUN (Urea Nitrogen) 28 mg/dL (9.8-20.1); Calc. Creatinine Clearance 81 mL/min (70-130); Calcium 8.6 mg/dL (7.8-10.44); Carbon Dioxide 26 mmol/L (23-31); Chloride 107 mmol/L (98-107); Glucose 98 mg/dL (83-110); Potassium 4.4 mmol/L (3.5-5.1); Sodium 139 mmol/L (136-145)
[2025-07-15 06:03] LABS: #Basophils Less than 0.03 10x3/uL (0.0-0.2); #Eosinophils 0.15 10x3/uL (0.0-0.7); #Monocytes 0.31 10x3/uL (0.11-0.59); #Neutrophils 1.77 10x3/uL (1.40-6.50); %Basophils 0.3 % (0.0-1.0); %Eosinophils 4.7 % (0.0-10.0); %Lymphocytes 29.0 % (21.0-51.0); %Monocytes 9.8 % (0.0-10.0); %Neutrophils 55.9 % (42.0-75.0); Hematocrit 30.2 % (36.0-47.0); Hemoglobin 8.9 g/dL (12.0-16.0); Mean Corpuscular Hemoglobin 24.9 pg (27.0-31.0); Mean Corpuscular Volume 84.4 fL (78.0-98.0); Platelet Count 106 10x3/uL (130-400); Red Blood Cell (RBC) Count 3.58 mill/uL (4.20-5.40); White Blood Cell (WBC) Count 3.17 10x3/uL (4.8-10.8)
[2025-07-15 07:22] LABS: Magnesium 1.6 mg/dL (1.6-2.6)
[2025-07-15] MEDS: Multivitamins, Adult 10 ML, TRACE ELEMENT CONCENTRATE 1 ML, Fat Emulsion 250 ML in D15W... IV SCH (16:19)
[2025-07-15] MEDS: Mupirocin 1 GM TUBE TP SCH (22:10)
[2025-07-16 06:26] LABS: #Basophils Less than 0.03 10x3/uL (0.0-0.2); #Eosinophils 0.17 10x3/uL (0.0-0.7); #Monocytes 0.46 10x3/uL (0.11-0.59); #Neutrophils 2.72 10x3/uL (1.40-6.50); %Basophils 0.2 % (0.0-1.0); %Eosinophils 4.0 % (0.0-10.0); %Lymphocytes 21.6 % (21.0-51.0); %Monocytes 10.7 % (0.0-10.0); %Neutrophils 63.3 % (42.0-75.0); Hematocrit 31.1 % (36.0-47.0); Hemoglobin 9.4 g/dL (12.0-16.0); Mean Corpuscular Hemoglobin 25.3 pg (27.0-31.0); Mean Corpuscular Volume 83.6 fL (78.0-98.0); Platelet Count 116 10x3/uL (130-400); Red Blood Cell (RBC) Count 3.72 mill/uL (4.20-5.40); White Blood Cell (WBC) Count 4.30 10x3/uL (4.8-10.8)
[2025-07-16 06:52] LABS: Anion Gap 13 mmol/L (10-20); BUN (Urea Nitrogen) 25 mg/dL (9.8-20.1); Calc. Creatinine Clearance 87 mL/min (70-130); Calcium 8.4 mg/dL (7.8-10.44); Carbon Dioxide 22 mmol/L (23-31); Chloride 108 mmol/L (98-107); Glucose 127 mg/dL (83-110); Magnesium 1.5 mg/dL (1.6-2.6); Potassium 4.5 mmol/L (3.5-5.1); Sodium 138 mmol/L (136-145)
[2025-07-16] MEDS: Magnesium Sulfate/D5W 1 GM in Premix 1 BAG IVPB SCH (09:15)
[2025-07-16 12:03] VITALS: BP 108/74; TEMP 98.5
[2025-07-16] MEDS ORDERED: Transdermal Patch Removal TOP SCH (21:00)
== END 2025-07-16 16:40 | disposition home or self-care (01) | DRG 315 ==
LOC: ERS 22:19 → SURG A 07-14 02:51 → OBSVTOIN 07-15 20:16
PROVIDERS: ADMIT Family Medicine; ATTEND Family Medicine
PROC: 02HV33Z Insertion of Infusion Device into Superior Vena Cava, Percutaneous Approach (ICD-10-PCS; principal; 2025-07-14)
PROC: B5181ZA Fluoroscopy of Superior Vena Cava using Low Osmolar Contrast, Guidance (ICD-10-PCS; 2025-07-14)
PROC: 3E0436Z Introduction of Nutritional Substance into Central Vein, Percutaneous Approach (ICD-10-PCS; 2025-07-14)
DX: T82.514A Breakdown (mechanical) of infusion catheter, initial encounter (principal); K90.829 Short bowel syndrome, unspecified; I10 Essential (primary) hypertension; E78.5 Hyperlipidemia, unspecified; Z93.3 Colostomy status; Z93.2 Ileostomy status; I48.0 Paroxysmal atrial fibrillation; Z91.018 Allergy to other foods; Z79.01 Long term (current) use of anticoagulants; Z90.49 Acquired absence of other specified parts of digestive tract; Z98.51 Tubal ligation status; Z98.890 Other specified postprocedural states; Z87.891 Personal history of nicotine dependence; Z79.899 Other long term (current) drug therapy; Z88.5 Allergy status to narcotic agent; B95.62 Methicillin resistant Staphylococcus aureus infection as the cause of diseases classified elsewhere; Y83.1 Surgical operation with implant of artificial internal device as the cause of abnormal reaction of the patient, or of later complication, without mention of misadventure at the time of the procedure; E66.01 Morbid (severe) obesity due to excess calories; Z68.37 Body mass index [BMI] 37.0-37.9, adult
CPT/HCPCS: 36415; 36573; 80048; 80053; 83605; 83735; 84100; 85025; 87040; 96374; 97139; 99284; C1751; G0378; J3475; Q0162